=== PATIENT | female | born 1985 | race Caucasian/White ===

== ENCOUNTER 2016-07-20 12:17 | Inpatient (IN) | payer SELFPAY ==
[~2016-07-20] VITALS: Ht 162.6 cm; Wt 54.9 kg
[~2016-07-20 12:17] MED LIST: ACETTAB19 PO; CALC500C3 PO; HYDR-5688 PO; IPRA1AER2 INH; PROC1TAB5 PO
[2016-07-20] MEDS ORDERED: VNTHFA/IN INH (12:25)
[2016-07-20] MEDS ORDERED: GABA-113 PO (12:25)
--- NOTE | 2016-07-20 13:57 | EMERGENCY ROOM VISIT NOTE ---
History First contact with patient: 12:23 Chief Complaint: REFERRED BY DOCTOR Stated Complaint: BRUISING History of Present Illness The patient is a pleasant 30 year old female who presents to the Emergency Room via private vehicle with complaints of "bruising". The patient states that today she was at [facility] for her initial visit when she was asked to come here by Dr. Herrera. The patient states that she is developed bruising on the bilateral legs that had been persistent for the past 4 -6 days. She develops more bruising each day and has no associated trauma, injury or pain. The patient today while at Dr. Herrera office reportedly had a routine [employer] exam, as well as Chlamydia and gonorrhea screen and negative test. She is here today requesting further workup for the bruising as well as HIV, hepatitis C, hepatitis B and RPR testing. The patient again states there is no known injury to the bruising. She does smoke around 4 cigarettes per day and is trying to quit. There is occasional alcohol use. There is history of IV drug use that was for the past 5 years, but denies any use in the past 4 months. Since then she has been trying to wean herself off of heroin and has not taken anything for the past 4 weeks until Wednesday and this past Wednesday of which she snorted heroin. She also admits to sharing needles. She denies any history of known blood disorders, chest pain, shortness of breath, abdominal pain, other skin changes or rashes, fever, chills , change in weight. She did recently have an [address] ride but denies contraceptives. Patient denies any urinary symptoms. Review of Systems A complete 10-point Review of Systems was discussed with the patient, with pertinent positives and negatives listed in the History of Present Illness. All remaining Review of Systems questions can be considered negative unless otherwise specified. Past Medical/Surgical History Medical Problems: (1) Anxiety State Nos (2) Bipolar disorder (3) Bronchitis (4) Depression (5) Gastroenteritis (6) Pneumonitis due to inhaled substance Family History Anxiety Diabetes mellitus GERD [place] under the age of 55 Social History Smoking Status: Current Every Day Smoker Alcohol Use: none Marital Status: single Housing Status: lives with friends Occupation Status: employed Current/Historical Medications Scheduled Albuterol Hfa (Ventolin Hfa), 2-4 PUFFS INH Q6H Gabapentin (Neurontin), 600 MG PO DAILY Allergies Coded Allergies: BEE STING (Verified Allergy, Unknown, swelling,SOB, 12/12/15) Physical Exam Vital Signs Date Time Temp Pulse Resp B/P Pulse Ox O2 Delivery O2 Flow Rate FiO2 07/20/16 16:50 91 20 146/100 94 Room Air 07/20/16 15:33 93 07/20/16 15:03 98 24 135/98 98 Room Air 07/20/16 14:09 128/69 07/20/16 12:19 36.7 92 18 134/73 93 Room Air Physical Exam VITAL SIGNS - Vital signs and nursing notes were reviewed. The patient is afebrile, she is normotensive at 134/73, she is not tachycardic and is saturating on room air at 93%. GENERAL -30-year-old female appearing her stated age who is in no acute distress. Communicates well with provider and answers questions appropriately. SKIN - there are multiple bruises overlying the bilateral lower extremities that spare the feet. These are not symmetrical in nature. There is slight tenderness to the right popliteal region overlying one of the bruises. No evidence of skin sloughing. There is no bruising above the waistline. HEAD - NC/AT. EYES - PERRL with EOMI bilaterally. Sclera anicteric. Palpebral conjunctiva pink and moist with no injection noted. EARS - No deformities of external structures noted on gross examination bilaterally. No hemotympanum. External auditory canals without discharge or otorrhea. Tympanic membranes pearly anderson without retraction or bulging. No fluid or purulent material visualized behind the TM. Handle of malleus, umbo, cone of light, pars tensa/flaccid all easily visualized. NOSE - Midline and without cyanosis. No epistaxis or purulent drainage noted. Septum midline without deviation or septal hematoma noted. MOUTH/OROPHARYNX - Without perioral cyanosis. Buccal mucosa pink and moist and without leukoplakia. Tongue midline with equal elevation of palate bilaterally. No tonsillar hypertrophy, erythema, or exudates noted. Fair dentition noted. LUNGS - Chest wall symmetric without accessory muscle use, intercostals retractions, or central cyanosis. Normal vesicular breath sounds CTA B/L. No wheezes, rales, or rhonchi appreciated. CARDIAC - RRR with S1/S2. No murmur, rubs, or gallops appreciated. EXTREMITIES - No clubbing or peripheral cyanosis. No pretibial edema present. + 5/5 strength noted in UE/LE bilaterally. NEUROLOGIC - Cranial nerves II through XII grossly intact. Sensory intact to light touch throughout. PSYCH - Pt is very pleasant and interacts well with examiner. Medical Decision & Procedures ER Provider Diagnostic Interpretation: CT ANGIOGRAM OF THE CHEST CLINICAL HISTORY: Atypical chest pain and shortness of breath. Suspected pulmonary embolism. COMPARISON STUDY: Chest x-ray dated 11/17/2015 TECHNIQUE: Following the IV administration of 86 mL of Optiray-320, CT angiogram of the thorax was performed from the thoracic inlet to the lung bases utilizing the pulmonary embolus protocol. Images are reviewed in the axial, sagittal, and coronal planes. IV contrast was administered without complication. MIP imaging was performed. CT DOSE: 190.72 mGy.cm FINDINGS: No pathologically enlarged axillary mediastinal or hilar lymph nodes were visualized. There was no evidence of thoracic aortic dilatation. There were no pulmonary artery filling defects to indicate acute pulmonary embolism. No pleural effusions are visualized. There is bilateral bronchial wall thickening and mucous plugging. There are scattered groundglass opacities within the right middle and right upper lobe, likely representing a pneumonitis. IMPRESSION: 1. No CT evidence of acute pulmonary embolism 2. Bilateral bronchial wall thickening and bilateral mucous plugging 3. Scattered groundglass opacities within the right upper lobe and right middle lobe, likely secondary to a pneumonitis Electronically signed by: Benjamin Romano M.D. 07/20/2016 4:42 PM Dictated Date/Time: 07/20/2016 4:37 PM Laboratory Results 07/20/16 13:27 Red Blood Count 4.18, Mean Corpuscular Volume 95.5, Mean Corpuscular Hemoglobin 32.5, Mean Corpuscular Hemoglobin Concent 34.1, Mean Platelet Volume 10.7, Neutrophils (%) (Auto) 66.9, Lymphocytes (%) (Auto) 14.5, Monocytes (%) (Auto) 8.3, Eosinophils (%) (Auto) 9.9, Basophils (%) (Auto) 0.2, Neutrophils # (Auto) 7.60, Lymphocytes # (Auto) 1.64, Monocytes # (Auto) 0.94, Eosinophils # (Auto) 1.12, Basophils # (Auto) 0.02 1/30/17 13:27 Test 07/20/16 13:27 White Blood Count 11.34 K/uL (4.8-10.8) Red Blood Count 4.18 M/uL (4.2-5.4) Hemoglobin 13.6 g/dL (12.0-16.0) Hematocrit 39.9 % (37-47) Mean Corpuscular Volume 95.5 fL (80-100) Mean Corpuscular Hemoglobin 32.5 pg (25-34) Mean Corpuscular Hemoglobin Concent 34.1 g/dl (32-36) Platelet Count 240 K/uL (130-400) Mean Platelet Volume 10.7 fL (7.4-10.4) Neutrophils (%) (Auto) 66.9 % Lymphocytes (%) (Auto) 14.5 % Monocytes (%) (Auto) 8.3 % Eosinophils (%) (Auto) 9.9 % Basophils (%) (Auto) 0.2 % Neutrophils # (Auto) 7.60 K/uL (1.4-6.5) Lymphocytes # (Auto) 1.64 K/uL (1.2-3.4) Monocytes # (Auto) 0.94 K/uL (0.11-0.59) Eosinophils # (Auto) 1.12 K/uL (0-0.5) Basophils # (Auto) 0.02 K/uL (0-0.2) RDW Standard Deviation 47.4 fL (36.4-46.3) RDW Coefficient of Variation 13.7 % (11.5-14.5) Immature Granulocyte % (Auto) 0.2 % Immature Granulocyte # (Auto) 0.02 K/uL (0.00-0.02) Erythrocyte Sedimentation Rate 14 mm/hr (0-21) Anion Gap 10.0 mmol/L (3-11) Est Creatinine Clear Calc Drug Dose 103.9 ml/min Estimated GFR () 136.3 Estimated GFR (Non- 117.6 BUN/Creatinine Ratio 15.0 (10-20) Calcium Level 9.1 mg/dl (8.5-10.1) Total Bilirubin 0.3 mg/dl (0.2-1) Aspartate Amino Transf (AST/SGOT) 12 U/L (15-37) Alanine Aminotransferase (ALT/SGPT) 17 U/L (12-78) Alkaline Phosphatase 57 U/L (45-117) Troponin I < 0.015 ng/ml (0-0.045) C-Reactive Protein 1.61 mg/dl (0-0.29) Total Protein 7.5 gm/dl (6.4-8.2) Albumin 4.3 gm/dl (3.4-5.0) Globulin 3.2 gm/dl (2.5-4.0) Albumin/Globulin Ratio 1.3 (0.9-2) Human Chorionic Gonadotropin, Qual NEG (NEG) Hepatitis B Surface Antigen NEG (NEG) Hepatitis C Antibody NEG (NEG) HIV (1&2) Ab and P24 Ag, 4th Gener NEG (NEG) Medications Administered Medications (Trade) Dose Ordered Sig/Isis Route Start Time Stop Time Status Last Admin Dose Admin Albuterol/ Ipratropium (Duoneb) 3 ml NOW STAT INH 07/20/16 15:13 07/20/16 15:19 DC 07/20/16 15:13 3 ML Levofloxacin (Levaquin / D5W) 750 mg NOW STAT IV 07/20/16 17:25 07/20/16 17:28 DC 07/20/16 18:21 750 MG Piperacillin Sod/ Tazobactam Sod (Zosyn Iv) 4.5 gm NOW STAT IV 07/20/16 17:25 07/20/16 17:28 DC 07/20/16 17:41 4.5 GM Medical Decision Patient was seen and evaluated as above. After obtaining a thorough history and physical examination, IV access was obtained and a CBC, CMP, RPR, ESR, C- reactive protein, HIV, hepatitis C, hepatitis b testing secondary to subjective and objective examination findings. Patient was also evaluated by my attending. The patient was very pleasant during exam and very truthful throughout history questions. She does a history of drug use and there was concern for underlying vasculitis or coagulopathy. Patient also requesting testing for blood-borne illnesses. This is also through the request of Dr. Herrera, of [facility] who called the emergency department at 12:10 PM and spoke with the nurse historic sites supervisor. The patient's workup did reveal a slight anemia and mild leukocytosis at 11.34. CMP revealed normal electrolytes, and good kidney function. AST was slightly low and the C- reactive protein was elevated. Troponin was negative. The pretest counseling was performed with the patient prior to ordering the hepatitis and HIV panels. She did consent. The results of the hepatitis B, hepatitis C and HIV were discussed with the patient and told to be negative here. The RPR were still pending. The case was discussed with my attending and it was decided that the patient was able to be discharged as she was quickly doing well however when I went to discuss the findings with the patient she had turned erythematous, had difficulty breathing therefore I immediately placed her on pulse ox and she desaturated to 87% on room air. I was quite concerned and ordered a chest x-ray , DuoNeb therapy, d-dimer secondary to these findings. I then discussed the case with my attending and it was decided to order a CT scan of the chest secondary to sudden onset and concern for PE as she was tachycardic and hypoxic suddenly for no identifiable reason. D-dimer and chest x-ray were canceled. The patient was placed on oxygen and then began to saturate well on this. CT scan did not reveal pulmonary embolism. There was groundglass opacities, mucous plugging and concern for pneumonitis. The patient noted that she has been using an inhaler lately for these symptoms and notes she is been using it quite frequently. Due to the patient's desaturation and correlation with the CT scan findings I do feel that antibiotics are necessary and the case was discussed with the in-house pharmacist and my attending. Through collaboration it was decided to order vancomycin, Zosyn and Levaquin. 1100 mg of vancomycin, 4.5 g of Zosyn and 750 mg of Levaquin were ordered. I do believe these are appropriate given the patient's clinical correlation to CT scan findings. Because the patient had the low oxygenation findings and was placed upon oxygen and correlation with the CT scan I do believe that she warrants admission at this time for further evaluation and management. I did discuss the case with Dr. Dupree, and the admitting physician will be Dr. Nguyen. I do believe this patient at this time will benefit from inpatient admission. Please refer to further documentation regarding the patient's stay. EKG revealed a normal sinus rhythm, rate of 76 bpm. No ectopy or ischemic change noted. In evaluation treatment this patient the following differential diagnoses were entertained: HSP, TTP, ITP, trauma, drug use, asthma, bronchitis, pulmonary embolism, myocardial infarction among others. Impression Primary Impression: Superficial bruising of lower leg Additional Impressions: Ground glass opacity present on imaging of lung Mucus plugging of bronchi Leukocytosis CRP elevated Departure Information Dispostion Admitted as an inpatient Referrals [facility] (PCP) Patient Instructions My [facility] Health Problem Qualifiers Primary Impression: Superficial bruising of lower leg Additional Impressions:
[2016-07-20 14:08] LABS: BASO % 0.2 %; BASO ABS # 0.02 K/uL (0-0.2); COMPLETE YES; EOS % 9.9 %; HEMATOCRIT 39.9 % (37-47); IG% 0.2 %; LYMPH % 14.5 %; LYMPH ABS # 1.64 K/uL (1.2-3.4); MEAN CELL VOLUME 95.5 fL (80-100); MEAN CORPUSCULAR HEMOGLOBIN 32.5 pg (25-34); MEAN CORPUSCULAR HGB CONC 34.1 g/dl (32-36); MEAN PLATELET VOLUME 10.7 fL (7.4-10.4); MONO % 8.3 %; NEUT % 66.9 %; PLATELET COUNT 240 K/uL (130-400); RED BLOOD COUNT 4.18 M/uL (4.2-5.4); WHITE BLOOD COUNT 11.34 K/uL (4.8-10.8)
[2016-07-20 14:34] LABS: C-REACTIVE PROTEIN 1.61 mg/dl (0-0.29); CALCIUM 9.1 mg/dl (8.5-10.1); CREATININE 0.69 mg/dl (0.60-1.20); POTASSIUM 4.1 mmol/L (3.5-5.1)
[2016-07-20 14:36] LABS: ALB/GLOB RATIO 1.3 (0.9-2)
[2016-07-20] MEDS ORDERED: ALBUT/IPRATROP 3MG/0.5MG NEB 3 ML VIAL INH STA (15:13)
[2016-07-20] MEDS ORDERED: OPTIRAY 320 IV PRN (15:30)
--- NOTE | 2016-07-20 16:44 | DIAGNOSTIC IMAGING REPORT ---
CT ANGIOGRAM OF THE CHEST CLINICAL HISTORY: Atypical chest pain and shortness of breath. Suspected pulmonary embolism. COMPARISON STUDY: Chest x-ray dated 11/17/2015 TECHNIQUE: Following the IV administration of 86 mL of Optiray-320, CT angiogram of the thorax was performed from the thoracic inlet to the lung bases utilizing the pulmonary embolus protocol. Images are reviewed in the axial, sagittal, and coronal planes. IV contrast was administered without complication. MIP imaging was performed. CT DOSE: 190.72 mGy.cm FINDINGS: No pathologically enlarged axillary mediastinal or hilar lymph nodes were visualized. There was no evidence of thoracic aortic dilatation. There were no pulmonary artery filling defects to indicate acute pulmonary embolism. No pleural effusions are visualized. There is bilateral bronchial wall thickening and mucous plugging. There are scattered groundglass opacities within the right middle and right upper lobe, likely representing a pneumonitis. IMPRESSION: 1. No CT evidence of acute pulmonary embolism 2. Bilateral bronchial wall thickening and bilateral mucous plugging 3. Scattered groundglass opacities within the right upper lobe and right middle lobe, likely secondary to a pneumonitis Electronically signed by: Benjamin Romano M.D. 07/20/2016 4:42 PM Dictated Date/Time: 07/20/2016 4:37 PM
[2016-07-20] MEDS ORDERED: PIPERACILLIN/TAZOBACTAM 4.5 GM/100ML D5W IV STA (17:25)
[2016-07-20] MEDS ORDERED: VANCOMYCIN INJ 1,100 MG in SODIUM CHLORIDE 0.9% 250ML 250 ML IV STA (17:25)
[2016-07-20] MEDS ORDERED: LEVAQUIN 750MG / 150ML D5W IV STA (17:25)
[2016-07-20 18:06] LABS: PREG INTERNAL NEGATIVE QC NEG CLEAR BACKGROUND; PREG INTERNAL POSITIVE QC POS CONTROL LINE
[2016-07-20] MEDS ORDERED: CLONIDINE HCL 0.1 MG TAB PO ONE (19:15)
[2016-07-20] MEDS ORDERED: PANTOprazole SOD 40 MG TAB PO STA (19:23)
[2016-07-20 19:51] VITALS: PULSE 85; O2SAT 94
[2016-07-20] MEDS: ALBUT/IPRATROP 3MG/0.5MG NEB 3 ML VIAL INH SCH (19:51)
[2016-07-20 19:55] VITALS: BP 143/92; PULSE 89; TEMP 36.5; O2SAT 95; Ht 162.6 cm; Wt 54.9 kg
--- NOTE | 2016-07-20 19:58 | History and Physical ---
History & Physical H &P dictated. KE
[2016-07-20 20:00] VITALS: O2SAT 95
[2016-07-20 20:09] LABS: THYROID STIMULATING HORMONE 1.33 uIu/ml (0.300-4.500)
[2016-07-20] MEDS ORDERED: METHYLPREDNISOLONE IV 125 MG in SYRINGE 0 ML IV ONE (20:10)
[2016-07-20] MEDS ORDERED: VANCOMYCIN CONSULT ACTIVE PRN (20:15)
[2016-07-20] MEDS ORDERED: PIPERACILL/TAZOBAC CONSULT ACTIVE PRN (20:15)
[2016-07-20] MEDS ORDERED: ALBUT/IPRATROP 3MG/0.5MG NEB 3 ML VIAL INH PRN (20:30)
--- NOTE | 2016-07-20 21:24 | Pharmacy Progress Note ---
Pharmacy Antibiotic Consult Date of Service: Jul 20, 2016. Pharmacy Dosing Scope Pharmacy is consulted to initiate vancomycin and zosyn IV dosing therapy, order appropriate labs and adjust drug dose/frequency. Subjective The patient is a 30 year old female admitted on Jul 20, 2016 at 18:16. Objective Height (Feet): 5 Height (Inches): 4.00 Weight (Kilograms): 56.700 Lab Results (24hrs): Laboratory Tests Test 07/20/16 13:27 BUN/Creatinine Ratio 15.0 Blood Urea Nitrogen 10 mg/dl Creatinine 0.69 mg/dl White Blood Count 11.34 K/uL Red Blood Count 4.18 M/uL Hemoglobin 13.6 g/dL Hematocrit 39.9 % Mean Corpuscular Volume 95.5 fL Mean Corpuscular Hemoglobin 32.5 pg Mean Corpuscular Hemoglobin Concent 34.1 g/dl Platelet Count 240 K/uL Mean Platelet Volume 10.7 fL Neutrophils (%) (Auto) 66.9 % Lymphocytes (%) (Auto) 14.5 % Monocytes (%) (Auto) 8.3 % Eosinophils (%) (Auto) 9.9 % Basophils (%) (Auto) 0.2 % Neutrophils # (Auto) 7.60 K/uL Lymphocytes # (Auto) 1.64 K/uL Monocytes # (Auto) 0.94 K/uL Eosinophils # (Auto) 1.12 K/uL Basophils # (Auto) 0.02 K/uL Assessment & Plan Patient started on vancomycin and zosyn for possible PNA. Vancomycin: * LD of 1100 mg (~20 mg/kg) x 1 given * Will order MD of 900 mg (~16 mg/kg) iv q 10 hrs to achieve an estimated trough of 18 mcg/ml (goal 15-20 mcg/ml for PNA) * Estimated kinetics: t1/2 ~8 hrs, ke ~0.0874 hr-1, CrCl >100 ml/min * Will obtain a trough prior to the 1200 dose on 07/22 to ensure therapeutic Zosyn: * 4.5 gm iv x 1 (given in ED) * Will start 3.375 gm iv q 8 hrs - which is appropriate for CrCl >20 ml/min ( actual ~100 ml/min) Pharmacy will continue to follow and will adjust dose/frequency as necessary. Thank you
--- NOTE | 2016-07-20 22:04 | HISTORY & PHYSICAL EXAMINATION ---
DATE OF ADMISSION: 07/20/2016 CHIEF COMPLAINT: Bruising on legs and shortness of breath. HISTORY OF PRESENT ILLNESS: The patient noticed bruising that started on her legs late last week. She said that the bruises are brown to light purple in color, had irregular edges. They are not particularly tender. She does not have any trauma. She was not unconscious at any point that she could have been traumatized without her knowing. She did not start taking any new medications. She has a history of Lyme disease and that was treated one year prior. The bruising appears to be worsening daily, each getting larger and now have moved up into her upper thighs and buttocks. On a separate issue, she was in our Emergency Department. She lay back and dozed off and suddenly when she awoke, she felt acutely short of breath and was wheezing. She does use an inhaler for asthma. She is a smoker. That prompted a CT of the chest where it was found that she has bilateral bronchial wall thickening and bilateral mucous plugging, scattered ground-glass opacities within the right upper lobe and right middle lobe likely secondary to pneumonitis. No CT evidence of acute pulmonary embolus. I asked her specifically if she often coughs when she is lying down considering that this may be aspiration, but she revealed to me that over this weekend she used heroin inhalation. PAST MEDICAL HISTORY: Significant for asthma, allergic rhinitis, dysmenorrhea, GERD, bipolar disorder panic disorder and Lyme disease one year prior. PAST SURGERIES: Include a lipoma removed from forehead. SOCIAL HISTORY: She is single, employed by [employer]. She occasionally drinks alcohol, has used marijuana in the past. She had been a one pack per day smoker and actually has weaned herself now down to 5-6 cigarettes per day. However, over this past weekend, at the same time that she used heroin in inhalation form, she said she smoked a lot more. Then did tell me that she had used IV heroin for a number of years and actually self-weaned to off. This past weekend is the first that she has used in 2 years' time. FAMILY HISTORY: Consistent with diabetes, GERD, coronary artery disease and anxiety. PHYSICAL EXAMINATION: VITAL SIGNS: Temperature 36.7, pulse 92, blood pressure 134/73 and pulse ox 93% on room air. GENERAL: The patient is pensive, but awake, alert and oriented x3. HEENT: TMs are intact. No inflammation. Extraocular muscles are intact. Pupils are equal, round react to light and accommodation. Mucous membranes are moist. Throat is clear. NECK: No JVD or lymphadenopathy. LUNGS: Show rhonchi bilaterally and some E to A changes in the right mid to lower lung field. Expiratory wheezing is noted. HEART: Regular, normal S1, S2, without murmurs, rubs or gallops. ABDOMEN: Soft, nontender, nondistended, with positive bowel sounds. EXTREMITIES: There is no clubbing, cyanosis or edema. Her legs are nontender. They are covered with gordon to brown to light purple irregular and multiple different sized what does appear to be subcutaneous bruising. They are flat. The only one that is tender is the larger one behind her right thigh. There are much less below the knee. It does not appear that there are any on her foot and it also seems to stop at her back. She reports that they have been progressing, both in number and in size. It has not traveled outside of the area. She has not had any new tick exposures. She assures me that she was not injured or abused. SKIN: I also noted that the skin on her cheeks are red. PSYCHIATRIC: The patient is cooperative, pleasant. She became tearful when she admitted that she had relapsed with her heroin use over this past weekend. LABORATORY DATA: White count 11.34, hemoglobin 13.6, hematocrit 39.9, platelet count 240,000. Sed rate of 14. Sodium 140, potassium 4.1, chloride 103, CO2 27, BUN 10, creatinine 0.69, glucose 91. AST of 12, ALT of 17. Troponin I less than 0.015. C-reactive protein is minimally elevated at 1.61. Her hCG qualitative is negative. Her RPR is pending. Hepatitis B surface antigen negative, hepatitis C antibody negative. HIV antibody negative. CT of the chest shows an impression of: 1. No CT evidence of acute pulmonary embolus. 2. Bilateral bronchial wall thickening and bilateral mucous plugging. 3. Scattered ground-glass opacities within the right upper lobe and right middle lobe, likely secondary to pneumonitis. ASSESSMENT: The patient is assessed as: 1. Right-sided pneumonitis. 2. Bronchospasm. 3. Heroin inhalation. 4. History of heroin abuse and subsequent relapse. 5. Nicotine abuse, smoking cessation was strongly encouraged. 6. Development of bruising on her lower extremities, not due to trauma. Her platelets are normal. 7. History of asthma. 8. History of allergic rhinitis. 9. History of gastroesophageal reflux disease. 10. History of bipolar disorder. 11. History of panic attacks. PLAN: The patient is admitted to telemetry unit. She was given nebulized treatments and DuoNebs. Even in the light of knowing that she inhaled a substance that likely caused pneumonitis and mucous plugging I am still wondering if she is having aspiration or was sedated at some point and aspirated, so I gave her vancomycin and Zosyn IV. I placed her on single dose of methylprednisolone 125 mg IV followed by q. 6 60 mg dose. I noted towards the latter part of her ER time her blood pressure was getting minimally elevated, so I did start her on clonidine 0.1 mg daily, nicotine patch, Zofran p.r.n. and Protonix daily. Consult pulmonology. DVT prophylaxis in the form of TEDs and SCDs. Consider Lovenox, subcutaneous heparin. Her platelets are fine, but I just suspect that would contribute further to the bruising as we are trying to determine what may be the culprit. I have ordered some additional labs to include vitamin B12, folate, TSH, free T4, AYDE, vitamin K, vitamin C and thiamine. Ivory was not interested at this time in discussing this relapse with mental health, drug and alcohol counseling. She reports that she was able to stop a 5+ year habit of IV heroin abuse on her own without any assistance and she did have a relapse this weekend, but feels that is behind her. She is upset that she did that and does not want to talk about it at this time. SOL
[2016-07-20] MEDS ORDERED: INFLUENZA VIRUS QUAD VACCINE 0.5 ML SYR IM. ONE (23:15)
[2016-07-20] MEDS ORDERED: INFLUENZA ADMINISTRATION CHARGE ONE (23:15)
[2016-07-20 23:55] VITALS: BP 122/70; PULSE 78; TEMP 36.8; O2SAT 96
[2016-07-21] VITALS (14 sets, daily range): BP systolic 116–138; BP diastolic 80–90; PULSE 72–113; TEMP 36.5–36.8; O2SAT 93–99
[2016-07-21] MEDS ORDERED: PIPERACILL/TAZOBAC IV 3.375 GM in DEXTROSE 5% 100ML 100 ML IV SCH ×2
[2016-07-21] MEDS ORDERED: VANCOMYCIN INJ 1,000 MG in SODIUM CHLORIDE 0.9% 250ML 250 ML IV SCH (02:00)
[2016-07-21] MEDS: METHYLPREDNISOLONE IV 60 MG in SYRINGE 0 ML IV SCH ×4 (02:01→19:53)
[2016-07-21] MEDS ORDERED: VANCOMYCIN INJ 900 MG in SODIUM CHLORIDE 0.9% 250ML 250 ML IV SCH (06:00)
[2016-07-21 06:31] LABS: COMPLETE YES; EOS % 0.1 %; HEMATOCRIT 39.3 % (37-47); IG% 0.2 %; LYMPH % 6.7 %; LYMPH ABS # 0.55 K/uL (1.2-3.4); MEAN CELL VOLUME 94.2 fL (80-100); MEAN CORPUSCULAR HEMOGLOBIN 32.1 pg (25-34); MEAN CORPUSCULAR HGB CONC 34.1 g/dl (32-36); MEAN PLATELET VOLUME 10.8 fL (7.4-10.4); MONO % 0.2 %; NEUT % 92.8 %; PLATELET COUNT 223 K/uL (130-400); RED BLOOD COUNT 4.17 M/uL (4.2-5.4); WHITE BLOOD COUNT 8.22 K/uL (4.8-10.8)
[2016-07-21 07:02] LABS: BUN/CREATININE RATIO 17.6 (10-20); CALCIUM 9.3 mg/dl (8.5-10.1); CREATININE 0.68 mg/dl (0.60-1.20); POTASSIUM 3.6 mmol/L (3.5-5.1)
[2016-07-21] MEDS: ALBUT/IPRATROP 3MG/0.5MG NEB 3 ML VIAL INH SCH ×5 (07:10→19:24)
--- NOTE | 2016-07-21 08:04 | Pulmonary Consultation ---
History General Date of Service: Jul 21, 2016. Stated Complaint: Pneumonitis Due To Inhaled Substance HPI The patient is a 30 year old female who presents to [facility] with complaints of Pneumonitis Due To Inhaled Substance. The patient's primary care provider is [facility]. 30 y/o female presenting to the ED after initially being evaluated by Dr. Herrera at the [facility] with notable progressive bilateral lower extremity bruising over the last week with no associated etiology/trauma. She was worked-up by Dr. Herrera; DAIRY SCIENTIST exam, Chlamydia, gonorrhea and . She has a history significant for IVDU (needle sharing), cigarette and occasional alcohol. She does notes no heroin over the last 4 months but snorted heroin last weekend. She was noted to be stable in the ED and was to be d/c but had an acute onset of erythema and difficulty breathing with SaO2 of 87% on ra. A CT of the thorax was obtained with no sing of PE but GGO changes, mucus plugin and possible pneumonitic changes where appreciated. With her acute clinical changes and CT findings she was admitted for monitoring and work- up. The patient has been treated with: Vancomycin 1100 mg Zosyn 4.5g Levaquin 750 mg x1 Oxygen support at 2Lnc DuoNeb Methylprednisolone 125mg x1 followed by 60mg IV Q6 Nicotine patch Patient also notes during our conversation more than likely the last 2-3 days using rescue inhaler 4-5 times per day with some relief secondary to dyspnea and chest tightness. She was not expressing fever, chills or productive sputum over those days. It is difficult for her to recall the last 4-5 days as her heroin use over the weekend seems to have clouded that timeframe. She does not describe any history consistent with poorly controlled asthma nor need further chronic inhaler use. 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 She is currently noting signs similar to previous withdrawal with fever, anxiety and irritability. Historian: patient, EMS Review of Systems Constitutional: reports: fever, malaise Eyes: reports: no symptoms ENT: reports: rhinorrhea Cardiovascular: reports: no symptoms Respiratory: reports: LOPEZ, cough Gastrointestinal: reports: no symptoms Genitourinary - Female: reports: no symptoms Musculoskeletal: reports: myalgias Integumentary: reports: other (lower extremity bruising/there is no bleeding in her gumline, IV sites, lab draw sites, vaginal, rectal other regions other than her lower extremities) Neurologic: reports: as stated in HPI, no symptoms Psychiatric: reports: depression Endocrine: no symptoms Hematologic / Lymphatic: easy bruising Allergic / Immunologic: no symptoms Past Medical History Past Medical History: (1) Anxiety State Nos (2) Bipolar disorder (3) Bronchitis (4) Depression (5) Gastroenteritis (6) Pneumonitis due to inhaled substance (7) Lymes Disease s/p treatment (8) Asthma (9) Allergic Rhinitis (10) Dysmenorrhea (11) GERD Past Surgical History: 1. Lipoma removal Family History Anxiety Diabetes mellitus GERD [place] under the age of 55 1.Anxiety 2.Diabetes mellitus 3.GERD 4.[place] under the age of 55 Social History Hx Tobacco Use In Past Year?: Yes Smoking Status: Current Every Day Smoker Marital status: single Housing status: lives alone Occupational Status: employed Immunizations History of Influenza Vaccine: No History of Tetanus Vaccine?: Unknown History of Pneumococcal: Yes History of Hepatitis B Vaccine: No History of MDRO History of MDRO: No Allergies Coded Allergies: BEE STING (Verified Allergy, Unknown, swelling,SOB, 12/12/15) Current Medications Reported Home Medications Medications Dose Route/Sig Max Daily Dose Days Date Category Neurontin (Gabapentin) 300 Mg Cap 600 Mg PO DAILY 07/20/16 Reported Ventolin Hfa (Albuterol) 200 Puffs/13644 Mcg Aers 2-4 Puffs INH Q6H 07/20/16 Reported Physical Physical Exam Vital Signs: Date Time Temp Pulse Resp B/P Pulse Ox O2 Delivery O2 Flow Rate FiO2 07/21/16 04:00 95 Room Air 07/21/16 03:54 36.6 72 16 116/81 93 Room Air 07/21/16 00:00 95 Room Air 07/20/16 23:55 36.8 78 17 122/70 96 Room Air 07/20/16 20:00 95 Room Air 07/20/16 19:55 36.5 89 22 143/92 95 Room Air 07/20/16 19:51 85 16 94 Room Air 07/20/16 18:23 79 18 144/90 91 Room Air 07/20/16 16:50 91 20 146/100 94 Room Air 07/20/16 15:33 93 07/20/16 15:03 98 24 135/98 98 Room Air 07/20/16 14:09 128/69 07/20/16 12:19 36.7 92 18 134/73 93 Room Air General Appearance: mild distress Head: NORMOCEPHALIC, ATRAUMATIC Eyes: PERRLA, NO DISCHARGE, EOMI, SCLERAE NORMAL, CONJUNCTIVAE NORMAL ENT: NORMAL MOUTH EXAM, NORMAL THROAT EXAM, NORMAL DENTAL EXAM, other (mild erythema of the narrow bilaterally) Neck: NORMAL RANGE OF MOTION, NO TENDERNESS, TRACHEA MIDLINE, NO STRIDOR, SUPPLE, NO THYROMEGALY Respiratory: rhonchi, wheezing Cardiovasular: REGULAR RATE/RHYTHM, NORMAL S1S2, NO M/G/R, NO MURMUR, NO GALLOP , NO RUB, NO JVD Abdomen: NON TENDER, NORMAL BOWEL SOUNDS, NO REBOUND, NO MASSES, NO GUARDING, NO ORGANOMEGALY, NORMAL RECTAL EXAM Genitourinary - Female: EXTERNAL GENITALIA NORMAL, other (normal rectal exam external) Back: NORMAL INSPECTION, NO MIDLINE TENDERNESS, NO CVA TENDERNESS, NO PARAVERTEBRAL TTP, NORMAL RANGE OF MOTION Upper Extremities: NO EDEMA, NO DEFORMITY, NORMAL ROM Lower Extremities: other (diffuse bruising/nonblanching nondependent or weightbearing regions) Pulses: carotid (R) (2+), carotid (L) (2+), dorsalis pedis (R) (2+), dorsalis pedis (L) (2+) Neuro: ALERT, ORIENTED x 3, NORMAL MOTOR EXAM, NORMAL SENSATION, NORMAL CEREBELLAR EXAM, NORMAL SPEECH Reflexes: biceps (R) (3+), bicpes (L) (3+), patellar (L) (2+), achilles (R) (2+ ) Babinski Testing: right (downgoing), left (downgoing) Psychiatric: NORMAL AFFECT, NO SUICIDAL IDEATION, CONTRACTS FOR SAFETY Diagnostics Labs Results Past 24 Hours Test 07/20/16 13:27 07/20/16 19:30 07/21/16 05:49 Range/Units White Blood Count 11.34 8.22 4.8-10.8 K/uL Red Blood Count 4.18 4.17 4.2-5.4 M/uL Hemoglobin 13.6 13.4 12.0-16.0 g/dL Hematocrit 39.9 39.3 37-47 % Mean Corpuscular Volume 95.5 94.2 80-100 fL Mean Corpuscular Hemoglobin 32.5 32.1 25-34 pg Mean Corpuscular Hemoglobin Concent 34.1 34.1 32-36 g/dl Platelet Count 240 223 130-400 K/uL Mean Platelet Volume 10.7 10.8 7.4-10.4 fL Neutrophils (%) (Auto) 66.9 92.8 % Lymphocytes (%) (Auto) 14.5 6.7 % Monocytes (%) (Auto) 8.3 0.2 % Eosinophils (%) (Auto) 9.9 0.1 % Basophils (%) (Auto) 0.2 0.0 % Neutrophils # (Auto) 7.60 7.62 1.4-6.5 K/uL Lymphocytes # (Auto) 1.64 0.55 1.2-3.4 K/uL Monocytes # (Auto) 0.94 0.02 0.11-0.59 K/uL Eosinophils # (Auto) 1.12 0.01 0-0.5 K/uL Basophils # (Auto) 0.02 0.00 0-0.2 K/uL RDW Standard Deviation 47.4 46.3 36.4-46.3 fL RDW Coefficient of Variation 13.7 13.4 11.5-14.5 % Immature Granulocyte % (Auto) 0.2 0.2 % Immature Granulocyte # (Auto) 0.02 0.02 0.00-0.02 K/uL Erythrocyte Sedimentation Rate 14 0-21 mm/hr Sodium Level 140 140 136-145 mmol/L Potassium Level 4.1 3.6 3.5-5.1 mmol/L Chloride Level 103 105 98-107 mmol/L Carbon Dioxide Level 27 22 21-32 mmol/L Anion Gap 10.0 13.0 3-11 mmol/L Blood Urea Nitrogen 10 12 7-18 mg/dl Creatinine 0.69 0.68 0.60-1.20 mg/dl Est Creatinine Clear Calc Drug Dose 103.9 105.5 ml/min Estimated GFR () 136.3 137.0 Estimated GFR (Non- 117.6 118.2 BUN/Creatinine Ratio 15.0 17.6 10-20 Random Glucose 91 125 70-99 mg/dl Calcium Level 9.1 9.3 8.5-10.1 mg/dl Total Bilirubin 0.3 0.2-1 mg/dl Aspartate Amino Transf (AST/SGOT) 12 15-37 U/L Alanine Aminotransferase (ALT/SGPT) 17 12-78 U/L Alkaline Phosphatase 57 45-117 U/L Troponin I < 0.015 0-0.045 ng/ml C-Reactive Protein 1.61 0-0.29 mg/dl Total Protein 7.5 6.4-8.2 gm/dl Albumin 4.3 3.4-5.0 gm/dl Globulin 3.2 2.5-4.0 gm/dl Albumin/Globulin Ratio 1.3 0.9-2 Human Chorionic Gonadotropin, Qual NEG NEG Rapid Plasma Reagin NONREACTIVE NONREACT Hepatitis B Surface Antigen NEG NEG Hepatitis C Antibody NEG NEG HIV (1&2) Ab and P24 Ag, 4th Gener NEG NEG Vitamin B12 Level 558 211-911 pg/mL Folate > 24.00 >5.38 ng/mL Thyroid Stimulating Hormone (TSH) 1.330 0.300-4.500 uIu/ml Free Thyroxine 1.25 0.80-1.60 ng/dl Diagnostic Radiology CT ANGIOGRAM OF THE CHEST 1.No CT evidence of acute pulmonary embolism 2.Bilateral bronchial wall thickening and bilateral mucous plugging 3.Scattered groundglass opacities within the right upper lobe and right middle lobe, likely secondary to a pneumonitis 4.P/A ratio >1 EKG Interpretation: NORMAL EKG Impression Assessment and Plan 30-year-old female with acute onset respiratory insufficiency and right upper lobe groundglass changes: #1 groundglass changes: The most likely diagnosis of acute onset unilateral are localized groundglass changes/pneumonitis or infection, pulmonary edema with mitral valve prolapse, pulmonary contusion, pulmonary hemorrhage pulmonary emboli are bronchial alveolar carcinoma's. At this time I think we should further evaluate the ideas of infection typical and atypical and possible pulmonary contusion versus vasculitis/inhalation injury. Suggest at this time we switched to Levaquin 750 mg daily for atypical coverage and performed an induced sputum sending for PCP/Mycobacterium and other infectious and viral etiologies. At this time I will hold off on sending for PCP analysis this patient's HIV has come back negative. #2 asthma: Patient does have a history of asthma very poorly defined in her clinical history agree with current steroid dosing but as she progresses/ improves should taper down quickly: #3 bruising: Patient shows no signs of bleeding in her gums, lab draw areas are current IV sites. Bleeding diathesis is lower on the list but etiology of active bruising is concerning. Labs are currently pending. If no etiology is found workup with bleeding time/platelet function analyzer/PT, PTT, INR and possibly even antiphospholipid antibody testing might be warranted versus hematologic consultation. #4 rhinitis: Initiate Flonase one puff each nostril twice a day.
[2016-07-21] MEDS: PANTOprazole SOD 40 MG TAB PO SCH (08:37)
[2016-07-21] MEDS: ONDANSETRON INJ 2 MG/ML 2 ML VIAL IV PRN ×3 (08:38→22:10)
[2016-07-21] MEDS: GABAPENTIN 600 MG TAB PO SCH (08:40)
[2016-07-21] MEDS: CLONIDINE HCL 0.1 MG TAB PO SCH (09:00)
[2016-07-21] MEDS: NICOTINE 7 MG/24 HR TDSY TD SCH ×2 (09:00→22:20)
[2016-07-21 09:40] LABS: BENZODIAZEPINE, URINE NEG (NEG); COCAINE,URINE NEG (NEG); PHENCYCLIDINE, URINE NEG (NEG)
[2016-07-21] MEDS ORDERED: LORAZEPAM INJ 2 MG in SYRINGE 1 ML IV PRN (10:00)
[2016-07-21] MEDS: LORAZEPAM 2 MG/ML 1 ML VIAL IV PRN ×3 (10:02→23:51)
[2016-07-21] MEDS ORDERED: NURSING VERBAL MED ORDER ONE (10:15)
[2016-07-21] MEDS: METOCLOPRAMIDE HCL INJ 5 MG/ML 2 ML VIAL IV PRN ×2 (10:23→15:56)
[2016-07-21] MEDS: DiphenhydrAMINE HCL 50 MG/ML VIAL IV PRN ×2 (10:27→15:56)
--- NOTE | 2016-07-21 15:22 | Hospitalist Progress Note ---
Hospitalist Progress Note Date of Service Jul 21, 2016. Subjective Pt evaluation today including: conversation w/ patient, physical exam, chart review, lab review, review of studies, review of inpatient medication list Patient in acute distress C/o nausea and abdominal pain RUQ c/o extreme anxiety Patient denies any sOB, chest pain or fevers Constitutional: No fever Eyes: No worsening of vision ENT: No hearing loss Respiratory: No cough, No dyspnea on exertion, No shortness of breath Cardiovascular: No chest pain, No edema Abdomen: + constipation, + nausea, + pain, No diarrhea, No vomiting Musculoskeletal: No joint pain Female : No dysuria Neurologic: No memory loss Psychiatric: No depression symptoms Heme: No abnormal bleeding/bruising Endo: No fatigue Medications Current Inpatient Medications Medications (Trade) Dose Ordered Sig/Isis Route Start Time Stop Time Status Last Admin Dose Admin Ioversol (Optiray 320) 100 ml UD PRN IV 07/20/16 15:30 07/24/16 15:29 Albuterol/ Ipratropium 3 ml 3 ml QIDR INH 07/20/16 20:00 08/19/16 19:59 07/21/16 14:55 3 ML Methylprednisolone Sodium Succinate/ Syringe (Solu-Medrol IV/ Syringe) 0.96 ml @ 1.5 mls/min Q6H IV 07/21/16 02:00 08/20/16 01:59 07/21/16 14:34 1.5 MLS/MIN Clonidine HCl (Catapres Tab) 0.1 mg QAM PO 07/21/16 09:00 08/20/16 08:59 07/21/16 09:00 0.1 MG Acetaminophen (Tylenol Tab) 650 mg Q4H PRN PO 07/20/16 19:15 08/19/16 19:14 Diphenhydramine HCl (Benadryl Inj) 25 mg Q4 PRN IV 07/20/16 19:30 08/19/16 19:29 07/21/16 10:27 25 MG Ondansetron HCl (Zofran Inj) 4 mg Q6H PRN IV 07/20/16 19:30 08/19/16 19:29 07/21/16 14:34 4 MG Pantoprazole Sodium (Protonix Tab) 40 mg QAM PO 07/21/16 09:00 08/20/16 08:59 07/21/16 08:37 40 MG Nicotine (Nicoderm Cq 7 Mg Patch) 1 patch QAM TD 07/21/16 09:00 08/20/16 08:59 Miscellaneous (Remove Nicoderm Patch) 1 ea HS N/A 07/20/16 21:00 08/19/16 20:59 Gabapentin (Neurontin Tab) 600 mg DAILY PO 07/21/16 09:00 08/20/16 08:59 07/21/16 08:40 600 MG Albuterol/ Ipratropium 3 ml 3 ml Q2H PRN INH 07/20/16 20:30 08/19/16 20:29 Levofloxacin/Prmx (Levaquin / D5W/ Premixed D5W) 150 ml @ 100 mls/hr Q24H IV 07/21/16 18:00 07/26/16 19:29 Lorazepam 2 mg 2 mg Q4H PRN IV 07/21/16 09:30 08/20/16 09:29 07/21/16 10:02 2 MG Lorazepam/Syringe (Ativan Inj/ Syringe) 2 ml @ 1 mls/min Q4H PRN IV 07/21/16 10:00 08/20/16 09:59 07/21/16 11:50 1 MLS/MIN Metoclopramide HCl (Reglan Inj) 10 mg Q6H PRN IV 07/21/16 10:15 08/20/16 10:14 07/21/16 10:23 10 MG Objective Vital Signs Date Time Temp Pulse Resp B/P Pulse Ox O2 Delivery O2 Flow Rate FiO2 07/21/16 14:56 100 16 96 Room Air 07/21/16 12:32 36.6 112 16 138/90 98 Room Air 07/21/16 12:00 97 Room Air 07/21/16 11:05 105 16 99 Room Air 07/21/16 08:39 36.5 89 16 136/85 94 Room Air 07/21/16 08:39 79 16 95 Room Air 07/21/16 08:00 97 Room Air 07/21/16 04:00 95 Room Air 07/21/16 03:54 36.6 72 16 116/81 93 Room Air 07/21/16 00:00 95 Room Air 07/20/16 23:55 36.8 78 17 122/70 96 Room Air 07/20/16 20:00 95 Room Air 07/20/16 19:55 36.5 89 22 143/92 95 Room Air 07/20/16 19:51 85 16 94 Room Air 07/20/16 18:23 79 18 144/90 91 Room Air 07/20/16 16:50 91 20 146/100 94 Room Air 07/20/16 15:33 93 Physical Exam General Appearance: WD/WN, + moderate distress Eyes: normal inspection ENT: normal ENT inspection Neck: supple Respiratory/Chest: chest non-tender Cardiovascular: + tachycardia Abdomen: + guarding, + tenderness Extremities: normal range of motion Neurologic/Psychiatric: college president II-XII nml as tested, no motor/sensory deficits, oriented x 3 Skin: normal color, warm/dry, no rash Lymphatic: no adenopathy Laboratory Results Last 24 Hours Test 07/20/16 19:30 07/21/16 00:00 07/21/16 05:49 Vitamin B12 Level 558 pg/mL Folate > 24.00 ng/mL Thyroid Stimulating Hormone (TSH) 1.330 uIu/ml Free Thyroxine 1.25 ng/dl Urine Opiates Screen POS Urine Methadone, Qualitative NEG Urine Barbiturates NEG Urine Phencyclidine (PCP) Level NEG Ur Amphetamine/Methamphetamine NEG MDMA (Ecstasy) Screen NEG Urine Benzodiazepines Screen NEG Urine Cocaine Metabolite NEG Urine Marijuana (THC) POS White Blood Count 8.22 K/uL Red Blood Count 4.17 M/uL Hemoglobin 13.4 g/dL Hematocrit 39.3 % Mean Corpuscular Volume 94.2 fL Mean Corpuscular Hemoglobin 32.1 pg Mean Corpuscular Hemoglobin Concent 34.1 g/dl Platelet Count 223 K/uL Mean Platelet Volume 10.8 fL Neutrophils (%) (Auto) 92.8 % Lymphocytes (%) (Auto) 6.7 % Monocytes (%) (Auto) 0.2 % Eosinophils (%) (Auto) 0.1 % Basophils (%) (Auto) 0.0 % Neutrophils # (Auto) 7.62 K/uL Lymphocytes # (Auto) 0.55 K/uL Monocytes # (Auto) 0.02 K/uL Eosinophils # (Auto) 0.01 K/uL Basophils # (Auto) 0.00 K/uL RDW Standard Deviation 46.3 fL RDW Coefficient of Variation 13.4 % Immature Granulocyte % (Auto) 0.2 % Immature Granulocyte # (Auto) 0.02 K/uL Sodium Level 140 mmol/L Potassium Level 3.6 mmol/L Chloride Level 105 mmol/L Carbon Dioxide Level 22 mmol/L Anion Gap 13.0 mmol/L Blood Urea Nitrogen 12 mg/dl Creatinine 0.68 mg/dl Est Creatinine Clear Calc Drug Dose 105.5 ml/min Estimated GFR () 137.0 Estimated GFR (Non- 118.2 BUN/Creatinine Ratio 17.6 Random Glucose 125 mg/dl Calcium Level 9.3 mg/dl Assessment and Plan Patient is a 30 y.o.F with PMHx of Asthma, Bipolar Depression, IVDA who presents with SOB and found to have pneumonitis on CT scan Pneumonitis - suspect 2/2 to inhalation pneumonitis( given recent inhalation of heroin) however r/o infection - appreciate pulmonary input - switch to levaquin day #2 - decrease steroids to q 8 hours - check induced sputum for mycobateria per pulmonary Nausea and Vomiting - suspect 2/2 to heroin withdrawal however given RUQ pain r/o hepatpbiliary etiology - check RUQ ultrasound - check hepatic function/hepatitis panel - start reglan and zofran Asthma - continue nebulizers and steroids as stated above h/o IVDA - last use 3 days prior to admission - social work consult - ativan IV prn Tobacco Abuse - smoking cessation Full Code
[2016-07-21] MEDS: LEVOFLOXACIN / D5W 750 MG in PREMIXED IN D5W 150 ML IV SCH (17:43)
--- NOTE | 2016-07-21 21:42 | DIAGNOSTIC IMAGING REPORT ---
ULTRASOUND RIGHT UPPER QUADRANT ABDOMEN CLINICAL HISTORY: Right upper quadrant abdominal pain. COMPARISON STUDY: Abdominal CT dated 03/10/2015. TECHNIQUE: Real-time, grayscale, and color flow sonography of the right upper quadrant of the abdomen was performed. Images are reviewed in the transverse and longitudinal planes. FINDINGS: Liver: The liver is normal in size and echotexture. There is no intrahepatic biliary ductal dilatation. The main portal vein is patent. 3 small well-circumscribed echogenic lesions are seen in the right hepatic lobe measure up to 1.4 cm. These are typical in appearance for small hemangiomas and also seen on the 2015 CT scan. Gallbladder: The gallbladder is normal in appearance. No gallstones are identified. There is no gallbladder wall thickening or pericholecystic fluid. A sonographic Jeong's sign is reportedly absent. The common bile duct measures up to 0.3 cm in diameter. Pancreas: Visualized portions of the pancreatic head and body are normal in appearance. The splenic vein is patent. Right kidney: Survey images of the right kidney demonstrate normal size and echotexture. There is no hydronephrosis. Ascites: None. IMPRESSION: 1. No acute sonographic abnormality is identified in the right upper quadrant. No gallstones are seen. 2. Small hepatic lesions are typical for benign hemangiomas and similar to previous. Electronically signed by: Edi Benitez M.D. 07/21/2016 9:40 PM Dictated Date/Time: 07/21/2016 9:38 PM
[2016-07-22] VITALS (16 sets, daily range): BP systolic 107–144; BP diastolic 69–92; PULSE 85–122; TEMP 36.4–37.3; O2SAT 95–98
[2016-07-22] MEDS ORDERED: NURSING DECISION MEDICATION ORDER SCH (01:15)
[2016-07-22] MEDS ORDERED: PROMETHAZINE HCL INJ 25 MG in SODIUM CHLORIDE 0.9% 50ML 50 ML IV ONE (01:45)
[2016-07-22] MEDS: DiphenhydrAMINE HCL 50 MG/ML VIAL IV PRN ×4 (01:53→22:32)
[2016-07-22] MEDS: ACETAMINOPHEN 325 MG TAB PO PRN ×2 (01:54→10:43)
[2016-07-22] MEDS: METHYLPREDNISOLONE IV 60 MG in SYRINGE 0 ML IV SCH (04:16)
[2016-07-22] MEDS: METOCLOPRAMIDE HCL INJ 5 MG/ML 2 ML VIAL IV PRN (04:16)
[2016-07-22] MEDS: LORAZEPAM 2 MG/ML 1 ML VIAL IV PRN ×4 (04:17→23:08)
[2016-07-22 06:03] LABS: HEMATOCRIT 36.6 % (37-47); MEAN CELL VOLUME 94.3 fL (80-100); MEAN CORPUSCULAR HEMOGLOBIN 32.5 pg (25-34); MEAN CORPUSCULAR HGB CONC 34.4 g/dl (32-36); MEAN PLATELET VOLUME 10.8 fL (7.4-10.4); PLATELET COUNT 241 K/uL (130-400); RED BLOOD COUNT 3.88 M/uL (4.2-5.4); WHITE BLOOD COUNT 23.61 K/uL (4.8-10.8)
[2016-07-22 06:27] LABS: BASO ABS # 0.01 K/uL (0-0.2); COMPLETE YES; IG% 0.4 %; LYMPH % 4.3 %; LYMPH ABS # 1.01 K/uL (1.2-3.4); MONO % 7.5 %; NEUT % 87.8 %
[2016-07-22 06:29] LABS: BUN/CREATININE RATIO 22.4 (10-20); CALCIUM 9.4 mg/dl (8.5-10.1); CREATININE 0.67 mg/dl (0.60-1.20); POTASSIUM 3.5 mmol/L (3.5-5.1)
[2016-07-22 06:31] LABS: ALB/GLOB RATIO 1.4 (0.9-2)
[2016-07-22] MEDS: ALBUT/IPRATROP 3MG/0.5MG NEB 3 ML VIAL INH SCH ×4 (06:50→19:15)
[2016-07-22] MEDS: PANTOprazole SOD 40 MG TAB PO SCH (09:26)
[2016-07-22] MEDS: CLONIDINE HCL 0.1 MG TAB PO SCH (09:26)
[2016-07-22] MEDS: GABAPENTIN 600 MG TAB PO SCH (09:27)
[2016-07-22] MEDS: NICOTINE 7 MG/24 HR TDSY TD SCH (10:43)
[2016-07-22] MEDS ORDERED: VANCOMYCIN TROUGH ONE (11:30)
--- NOTE | 2016-07-22 11:38 | Pulmonology Progress Note ---
Pulmonary Progress Note Date of Service Jul 22, 2016. Attending Luciano Sultana Subjective Patient is awake and arousable but will not speak Objective Unable to perform objective evaluation as patient will not speak Vital signs: Within normal limits/stable SaO2 on room air Physical exam: Respiratory: Clear to auscultation bilaterally Was unable to perform any other exam of the patient would not come out of the position Labs: #1 WBC count: 20 3K #2 glucose 120 #3 toxicology: Positive marijuana and opiates next line #4 RPR: Nonreactive #5 hepatitis B antigen: Negative #6 hepatitis C antibody: Negative #7 HIV: Negative Medications #1 methylprednisolone 60 mg IV every 8 hours #2 levofloxacin 750 mg IV daily #3 duo nebs every 2 hours when necessary/4 times per day Assessment & Plan 30-year-old female with acute onset respiratory insufficiency and right upper lobe groundglass changes: #1 Ground Glass changes: Patient has been stable with normal SaO2 on room air at this time. She is responded well to initial treatment and follow-up labs showed no signs of immunoincompetent state. It is possible patient's current groundglass changes on CAT scan are secondary to atypical pneumonia which exacerbated underlying asthma. Performing more invasive evaluations is not warranted at this time but follow up in 6 weeks with repeat high resolution CAT scan is warranted to determine resolution. Next line #2 asthma: Patient is responded well to steroids will decrease IV steroids to by mouth steroids 40 mg prednisone per day. We should be able to taper this quickly over the next 7-10 days. Patient will require inhaled glucocorticoid/ LABA initiation prior to discharge. #3 pneumonia: Patient is at risk for atypical pneumonias would continue Levaquin 750 mg daily #4 follow-up: Patient will need follow-up on her asthma as well as the groundglass nodules right upper lobe. I suggest she follow-up with her primary care doctor for asthma as this most likely was an exacerbation secondary to heroin inhalation. But the groundglass nodules do need follow-up with repeat CAT scan in 6 week window. The patient can come to the [place] [facility] with repeat CAT scan next 5-6 weeks. Data Medications: Current Inpatient Medications Medications (Trade) Dose Ordered Sig/Isis Route Start Time Stop Time Status Last Admin Dose Admin Ioversol (Optiray 320) 100 ml UD PRN IV 07/20/16 15:30 07/24/16 15:29 Albuterol/ Ipratropium (Duoneb) 3 ml QIDR INH 07/20/16 20:00 08/19/16 19:59 07/22/16 11:14 3 ML Clonidine HCl (Catapres Tab) 0.1 mg QAM PO 07/21/16 09:00 08/20/16 08:59 07/22/16 09:26 0.1 MG Acetaminophen (Tylenol Tab) 650 mg Q4H PRN PO 07/20/16 19:15 08/19/16 19:14 07/22/16 10:43 650 MG Diphenhydramine HCl (Benadryl Inj) 25 mg Q4 PRN IV 07/20/16 19:30 08/19/16 19:29 07/22/16 10:43 25 MG Ondansetron HCl (Zofran Inj) 4 mg Q6H PRN IV 07/20/16 19:30 08/19/16 19:29 07/21/16 22:10 4 MG Pantoprazole Sodium (Protonix Tab) 40 mg QAM PO 07/21/16 09:00 08/20/16 08:59 07/22/16 09:26 40 MG Nicotine (Nicoderm Cq 7 Mg Patch) 1 patch QAM TD 07/21/16 09:00 08/20/16 08:59 07/22/16 10:43 1 PATCH Miscellaneous (Remove Nicoderm Patch) 1 ea HS N/A 07/20/16 21:00 08/19/16 20:59 07/21/16 19:53 1 EA Gabapentin (Neurontin Tab) 600 mg DAILY PO 07/21/16 09:00 08/20/16 08:59 07/22/16 09:27 600 MG Albuterol/ Ipratropium 3 ml 3 ml Q2H PRN INH 07/20/16 20:30 08/19/16 20:29 Levofloxacin/Prmx (Levaquin / D5W/ Premixed D5W) 150 ml @ 100 mls/hr Q24H IV 07/21/16 18:00 07/26/16 19:29 07/21/16 17:43 100 MLS/HR Lorazepam 2 mg 2 mg Q4H PRN IV 07/21/16 09:30 08/20/16 09:29 07/22/16 09:26 2 MG Lorazepam/Syringe (Ativan Inj/ Syringe) 2 ml @ 1 mls/min Q4H PRN IV 07/21/16 10:00 08/20/16 09:59 07/21/16 11:50 1 MLS/MIN Metoclopramide HCl 10 mg 10 mg Q6H PRN IV 07/21/16 10:15 08/20/16 10:14 07/22/16 04:16 10 MG Methylprednisolone Sodium Succinate/ Syringe (Solu-Medrol IV/ Syringe) 0.96 ml @ 1.5 mls/min Q8H IV 07/21/16 20:00 08/20/16 19:59 07/22/16 04:16 1.5 MLS/MIN I & O: 24-Hour Column 07/22/16 08:00 Intake Total 340 ml Output Total 700 ml Balance -360 ml Vital Signs: Date Time Temp Pulse Resp B/P Pulse Ox O2 Delivery O2 Flow Rate FiO2 07/22/16 10:57 36.8 98 16 118/69 98 Room Air 07/22/16 09:24 98 135/91 07/22/16 08:00 98 Room Air 07/22/16 06:50 103 16 98 Room Air 07/22/16 04:00 98 Room Air 07/22/16 03:35 36.7 112 17 137/91 97 Room Air 07/22/16 00:00 98 Room Air 07/22/16 00:00 36.7 115 17 131/85 97 Room Air 07/21/16 20:00 98 Room Air 07/21/16 19:25 110 16 98 Room Air 07/21/16 18:40 36.8 113 20 136/84 97 Room Air 07/21/16 16:00 97 Room Air 07/21/16 15:37 36.8 113 20 126/80 97 Room Air 07/21/16 14:56 100 16 96 Room Air 07/21/16 12:32 36.6 112 16 138/90 98 Room Air 07/21/16 12:00 97 Room Air Laboratory Results: Last 24 Hours Test 07/22/16 05:20 White Blood Count 23.61 K/uL Red Blood Count 3.88 M/uL Hemoglobin 12.6 g/dL Hematocrit 36.6 % Mean Corpuscular Volume 94.3 fL Mean Corpuscular Hemoglobin 32.5 pg Mean Corpuscular Hemoglobin Concent 34.4 g/dl Platelet Count 241 K/uL Mean Platelet Volume 10.8 fL Neutrophils (%) (Auto) 87.8 % Lymphocytes (%) (Auto) 4.3 % Monocytes (%) (Auto) 7.5 % Eosinophils (%) (Auto) 0.0 % Basophils (%) (Auto) 0.0 % Neutrophils # (Auto) 20.72 K/uL Lymphocytes # (Auto) 1.01 K/uL Monocytes # (Auto) 1.78 K/uL Eosinophils # (Auto) 0.00 K/uL Basophils # (Auto) 0.01 K/uL RDW Standard Deviation 47.1 fL RDW Coefficient of Variation 13.7 % Immature Granulocyte % (Auto) 0.4 % Immature Granulocyte # (Auto) 0.09 K/uL Red Blood Cell Morphology Unremarkable Sodium Level 139 mmol/L Potassium Level 3.5 mmol/L Chloride Level 102 mmol/L Carbon Dioxide Level 26 mmol/L Anion Gap 11.0 mmol/L Blood Urea Nitrogen 15 mg/dl Creatinine 0.67 mg/dl Est Creatinine Clear Calc Drug Dose 107.1 ml/min Estimated GFR () 137.7 Estimated GFR (Non- 118.8 BUN/Creatinine Ratio 22.4 Random Glucose 120 mg/dl Calcium Level 9.4 mg/dl Total Bilirubin 0.5 mg/dl Aspartate Amino Transf (AST/SGOT) 7 U/L Alanine Aminotransferase (ALT/SGPT) 19 U/L Alkaline Phosphatase 52 U/L Total Protein 7.3 gm/dl Albumin 4.2 gm/dl Globulin 3.1 gm/dl Albumin/Globulin Ratio 1.4
--- NOTE | 2016-07-22 15:12 | Hospitalist Progress Note ---
Hospitalist Progress Note Date of Service Jul 22, 2016. Subjective Pt evaluation today including: conversation w/ patient, physical exam, chart review, lab review, review of studies, review of inpatient medication list Patient had episode of hallucinations and agitation overnight This morning does not rememeber episode Denies any chest pain, SOB, Nausea has improved with ativan Constitutional: No fever Eyes: No worsening of vision ENT: No hearing loss Respiratory: No cough, No shortness of breath Cardiovascular: No chest pain, No edema Abdomen: + nausea, No pain Musculoskeletal: No joint pain Female : No dysuria Neurologic: No memory loss Psychiatric: + problem reported (hallucinations) Endo: No fatigue Skin: No rash Medications Current Inpatient Medications Medications (Trade) Dose Ordered Sig/Isis Route Start Time Stop Time Status Last Admin Dose Admin Ioversol (Optiray 320) 100 ml UD PRN IV 07/20/16 15:30 07/24/16 15:29 Albuterol/ Ipratropium (Duoneb) 3 ml QIDR INH 07/20/16 20:00 08/19/16 19:59 07/22/16 11:14 3 ML Clonidine HCl (Catapres Tab) 0.1 mg QAM PO 07/21/16 09:00 08/20/16 08:59 07/22/16 09:26 0.1 MG Acetaminophen (Tylenol Tab) 650 mg Q4H PRN PO 07/20/16 19:15 08/19/16 19:14 07/22/16 10:43 650 MG Diphenhydramine HCl (Benadryl Inj) 25 mg Q4 PRN IV 07/20/16 19:30 08/19/16 19:29 07/22/16 14:40 25 MG Ondansetron HCl (Zofran Inj) 4 mg Q6H PRN IV 07/20/16 19:30 08/19/16 19:29 07/21/16 22:10 4 MG Pantoprazole Sodium (Protonix Tab) 40 mg QAM PO 07/21/16 09:00 08/20/16 08:59 07/22/16 09:26 40 MG Nicotine (Nicoderm Cq 7 Mg Patch) 1 patch QAM TD 07/21/16 09:00 08/20/16 08:59 07/22/16 10:43 1 PATCH Miscellaneous (Remove Nicoderm Patch) 1 ea HS N/A 07/20/16 21:00 08/19/16 20:59 07/21/16 19:53 1 EA Gabapentin (Neurontin Tab) 600 mg DAILY PO 07/21/16 09:00 08/20/16 08:59 07/22/16 09:27 600 MG Albuterol/ Ipratropium 3 ml 3 ml Q2H PRN INH 07/20/16 20:30 08/19/16 20:29 Levofloxacin/Prmx (Levaquin / D5W/ Premixed D5W) 150 ml @ 100 mls/hr Q24H IV 07/21/16 18:00 07/26/16 19:29 07/21/16 17:43 100 MLS/HR Lorazepam 2 mg 2 mg Q4H PRN IV 07/21/16 09:30 08/20/16 09:29 07/22/16 13:36 2 MG Lorazepam/Syringe (Ativan Inj/ Syringe) 2 ml @ 1 mls/min Q4H PRN IV 07/21/16 10:00 08/20/16 09:59 07/21/16 11:50 1 MLS/MIN Metoclopramide HCl (Reglan Inj) 10 mg Q6H PRN IV 07/21/16 10:15 08/20/16 10:14 07/22/16 04:16 10 MG Fluticasone Propionate (Flonase Nasal [place]) 1 sprays BID NA 07/22/16 21:00 08/21/16 20:59 Objective Vital Signs Date Time Temp Pulse Resp B/P Pulse Ox O2 Delivery O2 Flow Rate FiO2 07/22/16 11:20 36.5 110 20 141/90 95 Room Air 07/22/16 11:15 85 16 98 Room Air 07/22/16 10:57 36.8 98 16 118/69 98 Room Air 07/22/16 09:24 98 135/91 07/22/16 08:00 98 Room Air 07/22/16 06:50 103 16 98 Room Air 07/22/16 04:00 98 Room Air 07/22/16 03:35 36.7 112 17 137/91 97 Room Air 07/22/16 00:00 98 Room Air 07/22/16 00:00 36.7 115 17 131/85 97 Room Air 07/21/16 20:00 98 Room Air 07/21/16 19:25 110 16 98 Room Air 07/21/16 18:40 36.8 113 20 136/84 97 Room Air 07/21/16 16:00 97 Room Air 07/21/16 15:37 36.8 113 20 126/80 97 Room Air Physical Exam General Appearance: WD/WN, no apparent distress Eyes: normal inspection ENT: normal ENT inspection Neck: supple Respiratory/Chest: chest non-tender Cardiovascular: regular rate, rhythm, no edema Abdomen: normal bowel sounds, non tender, soft Extremities: normal range of motion, non-tender 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, no motor/sensory deficits, alert, oriented x 3 Skin: + rash Laboratory Results Last 24 Hours Test 07/22/16 05:20 White Blood Count 23.61 K/uL Red Blood Count 3.88 M/uL Hemoglobin 12.6 g/dL Hematocrit 36.6 % Mean Corpuscular Volume 94.3 fL Mean Corpuscular Hemoglobin 32.5 pg Mean Corpuscular Hemoglobin Concent 34.4 g/dl Platelet Count 241 K/uL Mean Platelet Volume 10.8 fL Neutrophils (%) (Auto) 87.8 % Lymphocytes (%) (Auto) 4.3 % Monocytes (%) (Auto) 7.5 % Eosinophils (%) (Auto) 0.0 % Basophils (%) (Auto) 0.0 % Neutrophils # (Auto) 20.72 K/uL Lymphocytes # (Auto) 1.01 K/uL Monocytes # (Auto) 1.78 K/uL Eosinophils # (Auto) 0.00 K/uL Basophils # (Auto) 0.01 K/uL RDW Standard Deviation 47.1 fL RDW Coefficient of Variation 13.7 % Immature Granulocyte % (Auto) 0.4 % Immature Granulocyte # (Auto) 0.09 K/uL Red Blood Cell Morphology Unremarkable Sodium Level 139 mmol/L Potassium Level 3.5 mmol/L Chloride Level 102 mmol/L Carbon Dioxide Level 26 mmol/L Anion Gap 11.0 mmol/L Blood Urea Nitrogen 15 mg/dl Creatinine 0.67 mg/dl Est Creatinine Clear Calc Drug Dose 107.1 ml/min Estimated GFR () 137.7 Estimated GFR (Non- 118.8 BUN/Creatinine Ratio 22.4 Random Glucose 120 mg/dl Calcium Level 9.4 mg/dl Total Bilirubin 0.5 mg/dl Aspartate Amino Transf (AST/SGOT) 7 U/L Alanine Aminotransferase (ALT/SGPT) 19 U/L Alkaline Phosphatase 52 U/L Total Protein 7.3 gm/dl Albumin 4.2 gm/dl Globulin 3.1 gm/dl Albumin/Globulin Ratio 1.4 Assessment and Plan Patient is a 30 y.o.F with PMHx of Asthma, Bipolar Depression, IVDA who presents with SOB and found to have pneumonitis on CT scan Pneumonitis - suspect 2/2 to inhalation pneumonitis( given recent inhalation of heroin) however r/o infection - appreciate pulmonary input - switch to levaquin day #3 - switch steroids to prednisone 40 mg daily - induced sputum for mycobateria per pulmonary pending Hallucinations/ with hx of bipolar d/o - suspect component of withdrawal however given psychiatric hx I am not sure - appreciate psychiatry input Nausea and Vomiting - suspect 2/2 to heroin withdrawal - improved - RUQ ultrasound reviewed - cont reglan and zofran Rash - thought to be 2/2 to latex - benadryl prn/ will list latex as allergy Asthma - continue nebulizers and steroids as stated above - start advair per pulmonary h/o IVDA - last use 3 days prior to admission - social work consultfor outpatient rehab as pt has agreed - ativan IV prn Pulmonary Nodule - patient will need followup CT in 6 weeks Tobacco Abuse - smoking cessation Full Code
[2016-07-22] MEDS: LEVOFLOXACIN / D5W 750 MG in PREMIXED IN D5W 150 ML IV SCH (17:52)
[2016-07-22] MEDS: FLUTICASONE PROPIONATE NA SPR 16 GM BTL SCH (20:11)
[2016-07-22] MEDS ORDERED: FLUTICASONE/SALMETEROL 100/50 (ADVAIR) 14 PUFF/1 INHALER INH SCH (21:00)
[2016-07-23] MEDS: LORAZEPAM 2 MG/ML 1 ML VIAL IV PRN ×2 (03:15→08:09)
[2016-07-23 04:23] VITALS: BP 118/74; PULSE 106; TEMP 36.6; O2SAT 97
[2016-07-23] MEDS: DiphenhydrAMINE HCL 50 MG/ML VIAL IV PRN (05:00)
[2016-07-23 06:23] LABS: COMPLETE YES; HEMATOCRIT 35.6 % (37-47); IG% 0.2 %; LYMPH % 13.4 %; LYMPH ABS # 1.65 K/uL (1.2-3.4); MEAN CELL VOLUME 94.7 fL (80-100); MEAN CORPUSCULAR HEMOGLOBIN 31.9 pg (25-34); MEAN CORPUSCULAR HGB CONC 33.7 g/dl (32-36); MEAN PLATELET VOLUME 10.8 fL (7.4-10.4); MONO % 11.1 %; NEUT % 75.3 %; PLATELET COUNT 203 K/uL (130-400); RED BLOOD COUNT 3.76 M/uL (4.2-5.4); WHITE BLOOD COUNT 12.35 K/uL (4.8-10.8)
[2016-07-23 06:48] LABS: BUN/CREATININE RATIO 17.6 (10-20); CREATININE 0.88 mg/dl (0.60-1.20); POTASSIUM 3.6 mmol/L (3.5-5.1)
[2016-07-23 06:49] LABS: ALB/GLOB RATIO 1.4 (0.9-2)
[2016-07-23] MEDS: ALBUT/IPRATROP 3MG/0.5MG NEB 3 ML VIAL INH SCH ×2 (07:16→11:12)
[2016-07-23 07:17] VITALS: PULSE 86; O2SAT 98
[2016-07-23] MEDS: FLUTICASONE PROPIONATE NA SPR 16 GM BTL SCH (08:06)
[2016-07-23] MEDS: GABAPENTIN 600 MG TAB PO SCH (08:06)
[2016-07-23] MEDS: NICOTINE 7 MG/24 HR TDSY TD SCH (08:07)
[2016-07-23] MEDS: PANTOprazole SOD 40 MG TAB PO SCH (08:07)
[2016-07-23] MEDS: CLONIDINE HCL 0.1 MG TAB PO SCH (08:07)
[2016-07-23 08:14] VITALS: BP 111/69; PULSE 76; TEMP 36.6; O2SAT 99
--- NOTE | 2016-07-23 08:45 | Pulmonology Progress Note ---
Pulmonary Progress Note Date of Service Jul 23, 2016. Attending Luciano Sultana Subjective Patient has no respiratory complaints at this time was able to ambulate without before even take showers with no dyspnea on exertion. Objective Patient symptoms no signs of increased work of breathing, able to complete full sentences not using accessory muscles are becoming tachypnea Vital signs: Within normal limits/stable SaO2 on room air Physical exam: Respiratory: Clear to auscultation bilaterally Was unable to perform any other exam of the patient would not come out of the position Labs: #1 WBC count: 20 3K #2 glucose 120 #3 toxicology: Positive marijuana and opiates next line #4 RPR: Nonreactive #5 hepatitis B antigen: Negative #6 hepatitis C antibody: Negative #7 HIV: Negative Medications #1 methylprednisolone 60 mg IV every 8 hours #2 levofloxacin 750 mg IV daily #3 duo nebs every 2 hours when necessary/4 times per day Assessment & Plan 30-year-old female admitted with acute onset respiratory insufficiency and right upper lobe groundglass changes: #1 Ground Glass changes: I spoke to the patient at length she will require 6 week follow-up high risk noncontrast CT. Etiology possibly inhalation injury, most often bilateral in nature, or atypical pneumonia. #2 Asthma: Patient is doing well suggest that we taper down her steroids over 10 day window. 40 mg 3 days, 30 mg 3 days, 20 mg 2 days 10 mg 1 then discontinue. We'll move patient's Advair disc up to 250/50 #3 Pneumonia: Patient currently on Levaquin 750 mg day 3 of 5. #4 Follow-Up: Patient will require follow-up in the [place] [facility] with noncontrast CT/high risk in the next 6-8 weeks. At this time will sign off please reconsult as necessary. Data Medications: Current Inpatient Medications Medications (Trade) Dose Ordered Sig/Isis Route Start Time Stop Time Status Last Admin Dose Admin Ioversol (Optiray 320) 100 ml UD PRN IV 07/20/16 15:30 07/24/16 15:29 Albuterol/ Ipratropium (Duoneb) 3 ml QIDR INH 07/20/16 20:00 08/19/16 19:59 07/23/16 07:16 3 ML Clonidine HCl (Catapres Tab) 0.1 mg QAM PO 07/21/16 09:00 08/20/16 08:59 07/23/16 08:07 0.1 MG Acetaminophen (Tylenol Tab) 650 mg Q4H PRN PO 07/20/16 19:15 08/19/16 19:14 07/22/16 10:43 650 MG Diphenhydramine HCl (Benadryl Inj) 25 mg Q4 PRN IV 07/20/16 19:30 08/19/16 19:29 07/23/16 05:00 25 MG Ondansetron HCl (Zofran Inj) 4 mg Q6H PRN IV 07/20/16 19:30 08/19/16 19:29 07/21/16 22:10 4 MG Pantoprazole Sodium (Protonix Tab) 40 mg QAM PO 07/21/16 09:00 08/20/16 08:59 07/23/16 08:07 40 MG Nicotine (Nicoderm Cq 7 Mg Patch) 1 patch QAM TD 07/21/16 09:00 08/20/16 08:59 07/23/16 08:07 1 PATCH Miscellaneous (Remove Nicoderm Patch) 1 ea HS N/A 07/20/16 21:00 08/19/16 20:59 07/22/16 20:05 1 EA Gabapentin (Neurontin Tab) 600 mg DAILY PO 07/21/16 09:00 08/20/16 08:59 07/23/16 08:06 600 MG Albuterol/ Ipratropium 3 ml 3 ml Q2H PRN INH 07/20/16 20:30 08/19/16 20:29 Levofloxacin/Prmx (Levaquin / D5W/ Premixed D5W) 150 ml @ 100 mls/hr Q24H IV 07/21/16 18:00 07/26/16 19:29 07/22/16 17:52 100 MLS/HR Lorazepam 2 mg 2 mg Q4H PRN IV 07/21/16 09:30 08/20/16 09:29 07/23/16 08:09 2 MG Lorazepam/Syringe (Ativan Inj/ Syringe) 2 ml @ 1 mls/min Q4H PRN IV 07/21/16 10:00 08/20/16 09:59 07/21/16 11:50 1 MLS/MIN Metoclopramide HCl (Reglan Inj) 10 mg Q6H PRN IV 07/21/16 10:15 08/20/16 10:14 07/22/16 04:16 10 MG Fluticasone Propionate (Flonase Nasal [place]) 1 sprays BID NA 07/22/16 21:00 08/21/16 20:59 07/23/16 08:06 1 SPRAYS Prednisone (PredniSONE TAB) 30 mg DAILY PO 07/23/16 09:00 08/22/16 08:59 07/23/16 08:13 30 MG Salmeterol Xinafoate/ Fluticasone (Advair Diskus 250/50 Inh) 1 puff BID INH 07/23/16 09:00 08/22/16 08:59 I & O: 24-Hour Column 07/23/16 08:00 Intake Total 620 ml Output Total 2400 ml Balance -1780 ml Vital Signs: Date Time Temp Pulse Resp B/P Pulse Ox O2 Delivery O2 Flow Rate FiO2 07/23/16 08:14 36.6 76 16 111/69 99 07/23/16 07:17 86 12 98 Room Air 07/23/16 04:23 36.6 106 18 118/74 97 Room Air 07/23/16 04:02 Room Air 07/23/16 00:02 Room Air 07/22/16 23:38 37.3 112 17 117/70 96 Room Air 07/22/16 20:18 36.4 122 16 107/74 97 Room Air 07/22/16 20:00 Room Air 07/22/16 19:16 89 16 98 Room Air 07/22/16 16:00 96 Room Air 07/22/16 15:39 36.7 109 18 144/92 96 Room Air 07/22/16 15:23 104 16 98 Room Air 07/22/16 12:00 95 Room Air 07/22/16 11:20 36.5 110 20 141/90 95 Room Air 07/22/16 11:15 85 16 98 Room Air 07/22/16 10:57 36.8 98 16 118/69 98 Room Air 07/22/16 09:24 98 135/91 Laboratory Results: Last 24 Hours Test 07/23/16 05:23 White Blood Count 12.35 K/uL Red Blood Count 3.76 M/uL Hemoglobin 12.0 g/dL Hematocrit 35.6 % Mean Corpuscular Volume 94.7 fL Mean Corpuscular Hemoglobin 31.9 pg Mean Corpuscular Hemoglobin Concent 33.7 g/dl Platelet Count 203 K/uL Mean Platelet Volume 10.8 fL Neutrophils (%) (Auto) 75.3 % Lymphocytes (%) (Auto) 13.4 % Monocytes (%) (Auto) 11.1 % Eosinophils (%) (Auto) 0.0 % Basophils (%) (Auto) 0.0 % Neutrophils # (Auto) 9.31 K/uL Lymphocytes # (Auto) 1.65 K/uL Monocytes # (Auto) 1.37 K/uL Eosinophils # (Auto) 0.00 K/uL Basophils # (Auto) 0.00 K/uL RDW Standard Deviation 48.7 fL RDW Coefficient of Variation 14.1 % Immature Granulocyte % (Auto) 0.2 % Immature Granulocyte # (Auto) 0.02 K/uL Sodium Level 142 mmol/L Potassium Level 3.6 mmol/L Chloride Level 105 mmol/L Carbon Dioxide Level 25 mmol/L Anion Gap 12.0 mmol/L Blood Urea Nitrogen 16 mg/dl Creatinine 0.88 mg/dl Est Creatinine Clear Calc Drug Dose 81.5 ml/min Estimated GFR () 102.9 Estimated GFR (Non- 88.8 BUN/Creatinine Ratio 17.6 Random Glucose 92 mg/dl Calcium Level 9.0 mg/dl Total Bilirubin 0.4 mg/dl Aspartate Amino Transf (AST/SGOT) 6 U/L Alanine Aminotransferase (ALT/SGPT) 18 U/L Alkaline Phosphatase 45 U/L Total Protein 6.6 gm/dl Albumin 3.8 gm/dl Globulin 2.8 gm/dl Albumin/Globulin Ratio 1.4
[2016-07-23] MEDS ORDERED: FLUTICASONE/SALMETEROL 250/50 (ADVAIR) 14 PUFF/1 INHALER INH SCH (09:00)
[2016-07-23 11:16] VITALS: BP 108/63; PULSE 76; TEMP 36.8; O2SAT 99
[2016-07-23] MEDS ORDERED: IPRATROPIUM BROMIDE/ALBUTEROL respimat INH INH PRN (14:15)
[2016-07-23] MEDS ORDERED: LEVO1TAB35 PO (14:47)
[2016-07-23] MEDS ORDERED: PRD10 PO ×2 (14:47→14:55)
[2016-07-23] MEDS ORDERED: ADVIN25050 INH (14:47)
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
--- NOTE | 2016-07-23 14:56 | Discharge Instructions ---
Discharge Instructions Admission Admission Date: Jul 20, 2016 at 18:16 Admission Diagnosis: Pneumonitis Due To Inhaled Substance. Discharge Care Plan - Problem: Medical Problems: (1) CRP elevated (2) Ground glass opacity present on imaging of lung (3) Leukocytosis (4) Mucus plugging of bronchi (5) Superficial bruising of lower leg Care Plan - Goal(s): Decrease discomfort, Improve function Care Plan - Instructions: Activity Recommendations: no limitations Recommended Home Diet: Regular Provider Instructions: Please have a follow up CT scan in 6-8 weeks Please follow/up with the pulmonary clinic for workup of your lung nodule in 4 weeks. You should be called this week with an appointment Please follow up at your scheduled appointment at your primary care clinic on 07/30/16 VTE Core Measure Inpt VTE Proph given/why not?: SCD's Beti Wood Recommendations: Call your doctor if: * Temperature above 101 degrees * Pain not relieved by pain medicine ordered * There is increased drainage or redness from any incision * You have any unanswered questions or concerns. Your Doctors Instructions noted above were prepared by provider Xochitl Larose.
--- NOTE | 2016-07-23 15:15 | Discharge Summary ---
Discharge Summary Admission Date: Jul 20, 2016 at 18:16 Discharge Date: Jul 23, 2016 Discharge Disposition: Home Principal Diagnosis: Pneumonitis/Pulmonary Nodule Problems/Secondary Diagnoses: Bipolar d/o Depression Asthma Immunizations: Have You Had Influenza Vaccine: No History of Tetanus Vaccine?: Unknown History of Pneumococcal: Yes History of Hepatitis B Vaccine: No Medication Reconciliation New Medications: Levofloxacin (Levaquin) 750 Mg Tab 750 MG PO DAILY for 2 Days, #2 TAB Fluticasone Prop/Salmeterol (Advair Diskus 250-50 Mcg/Dose) 14 Puff/1 Inhaler Aerp 1 PUFF INH BID for 30 Days, #1 Prednisone (Prednisone) 10 Mg Tab 10 MG PO DIRECTED for 7 Days, #28 TAB 40 mg daily 3 days, 30 mg daily 3 days, 20 mg daily 2 days 10 mg daily 1 then discontinue Continued Medications: Albuterol Hfa (Ventolin Hfa) 200 Puffs/97225 Mcg Aers 2-4 PUFFS INH Q6H, #1 INHALER Gabapentin (Neurontin) 300 Mg Cap 600 MG PO DAILY, CAP Discharge Exam Review of Systems: Constitutional: No chills Eyes: No worsening of vision Respiratory: No cough Cardiovascular: No chest pain Abdomen: No pain Musculoskeletal: No joint pain Genitourinary - Female: No dysuria Genitourinary - Male: No hematuria Neurologic: No paralysis Physical Exam: General Appearance: WD/WN Eyes: normal inspection ENT: normal ENT inspection Neck: supple Respiratory/Chest: chest non-tender, lungs clear Cardiovascular: regular rate, rhythm, no edema Abdomen / GI: normal bowel sounds, non tender Extremities: normal inspection Neurologic/Psychiatric: 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, no motor/sensory deficits , alert, oriented x 3 Skin: normal color, warm/dry Hospital Course Patient is a 30 y.o.F with PMHx of Asthma, Bipolar Depression, IVDA who presents with SOB and found to have pneumonitis on CT scan Pneumonitis - suspected 2/2 to inhalation pneumonitis( given recent inhalation of heroin) however treated patient for infectious bacterial pneumonia - appreciated pulmonary input - treated a 3 days of levaquin instructed to continue for total 5 day course - started on steroids and discahrged on a 10 day taper - induced sputum for mycobateria per pulmonary pending at time of discharge however unlikely Hallucinations/ with hx of bipolar d/o -psychiatry evaluated patient did not believe acute psychiatric dz - suspect 2/2 to ativan and benadryl combination Nausea and Vomiting - suspected 2/2 to heroin withdrawal - improved - RUQ ultrasound showed no acute findings - reglan and zofran Rash - thought to be 2/2 to latex - benadryl prn/listed latex as allergy Asthma - continued nebulizers and steroids as stated above - started advair per pulmonary h/o IVDA - last use 3 days prior to admission - social work consult for outpatient rehab however patient refused - ativan given prn Pulmonary Nodule - patient instructed to have followup CT in 6 weeks Tobacco Abuse - smoking cessation Full Code Disposition- discharged home in stable condition in the care of her mother who stated she would provide 24 hours supervision to the patient. F/u appointments made at patients clinic on 07/30/16. Patient will be called with f/u pulmonary appointment. Prescriptions for prednison, levaquin and advair [facility] where [facility] as patient does not have insurance Total Time Spent: Greater than 30 minutes This includes examination of the patient, discharge planning, medication reconciliation, and communication with other providers. Discharge Instructions Please refer to the electronic Patient Visit Report (Discharge Instructions) for additional information.
[2016-07-23 15:35] VITALS: BP 108/63; PULSE 76; TEMP 36.8; O2SAT 99
[2016-07-23 16:21] LABS: COD UR NEGATIVE NG/ML (CUTOFF=50); HYDROCOD UR NEGATIVE NG/ML (CUTOFF=50); HYDROMOR UR 272 NG/ML (CUTOFF=50); MORPHINE UR 8420 NG/ML (CUTOFF=50); NORHYDROCODONE CONF UR NEGATIVE NG/ML (CUTOFF=50); OXYMORPH UR NEGATIVE NG/ML (CUTOFF=50)
[2016-07-23] MEDS ORDERED: IPRATROPIUM BROMIDE/ALBUTEROL respimat INH INH SCH (17:00)
[2016-07-25 22:15] LABS: VIT B1 PLASMA(THIAMIN)**90353 43 nmol/L (8-30)
[2016-07-27 13:05] LABS: ANA TITER 1:40 TITER (<1:40)
== END 2016-07-23 16:04 | disposition home or self-care (01) | DRG 178 ==
LOC: ENRESERVDT → ENRESERVTM → C.EDB 12:19 → C.2E 18:16
PROVIDERS: ADMIT Hospitalist; ATTEND Hospitalist
DX: J69.0 Pneumonitis due to inhalation of food and vomit (principal); R44.3 Hallucinations, unspecified; F11.23 Opioid dependence with withdrawal; T17.590A Other foreign object in bronchus causing asphyxiation, initial encounter; J45.901 Unspecified asthma with (acute) exacerbation; T42.4X5A Adverse effect of benzodiazepines, initial encounter; T45.0X5A Adverse effect of antiallergic and antiemetic drugs, initial encounter; T40.1X2A Poisoning by heroin, intentional self-harm, initial encounter; R11.2 Nausea with vomiting, unspecified; T65.811A Toxic effect of latex, accidental (unintentional), initial encounter; L23.89 Allergic contact dermatitis due to other agents; Y92.239 Unspecified place in hospital as the place of occurrence of the external cause; J15.9 Unspecified bacterial pneumonia; R06.89 Other abnormalities of breathing; S80.12XA Contusion of left lower leg, initial encounter; S80.11XA Contusion of right lower leg, initial encounter; X58.XXXA Exposure to other specified factors, initial encounter; J31.0 Chronic rhinitis; R91.8 Other nonspecific abnormal finding of lung field; F12.10 Cannabis abuse, uncomplicated; F10.10 Alcohol abuse, uncomplicated; F31.9 Bipolar disorder, unspecified; F41.0 Panic disorder [episodic paroxysmal anxiety]; F17.210 Nicotine dependence, cigarettes, uncomplicated; Z86.19 Personal history of other infectious and parasitic diseases; Z23 Encounter for immunization; Z91.5 Personal history of self-harm; Z79.899 Other long term (current) drug therapy

== ENCOUNTER → 2016-09-28 | Outpatient (CLI) | payer OTHER ==
[~2016-09-28] MED LIST changes: -ACETTAB19 PO; +ADVIN25050 INH; -CALC500C3 PO; +GABA-113 PO; -HYDR-5688 PO; -IPRA1AER2 INH; +PRD10 PO; -PROC1TAB5 PO; +VNTHFA/IN INH
--- NOTE | 2016-09-28 16:00 | DIAGNOSTIC IMAGING REPORT ---
CT SCAN OF THE CHEST WITHOUT IV CONTRAST CLINICAL HISTORY: Pulmonary nodule. COMPARISON STUDY: Chest CT dated 07/20/2016. TECHNIQUE: CT scan of the thorax was performed from the thoracic inlet to the upper abdomen. Images are reviewed in the axial, sagittal, and coronal planes. IV contrast was not administered for this examination as per the referring clinician. CT DOSE: 202.97 mGy.cm FINDINGS: Thyroid: Imaged portions of the thyroid gland are normal in size and attenuation. There is a 6 cm low-attenuation nodule in the left lobe. Thoracic aorta: The thoracic aorta is normal in caliber and demonstrates standard 3-vessel arch anatomy. Heart: The heart is normal in size and without pericardial effusion. Lungs and pleural spaces: The lungs and pleural spaces are clear. Groundglass opacities in the right upper and middle lobes seen on 07/20/2016 have resolved. Trachea and central airways are patent. Mediastinum: There is no mediastinal lymphadenopathy. Yesenia: Not well assessed without IV contrast. Axillae: There is no axillary lymphadenopathy. Upper abdomen: Partially visualized upper abdominal viscera is within normal limits. Skeletal structures: No lytic or blastic bony lesions are seen. IMPRESSION: 1. The lungs are clear. 2. Airspace opacities in the right upper and middle lobes seen on 07/20/2016 have resolved and were likely on an infectious/inflammatory basis. 3. There is a subcentimeter low-attenuation nodule in the left lobe of the thyroid gland. Precautionary sonographic follow-up is recommended. Electronically signed by: Edi Benitez M.D. 09/28/2016 3:57 PM Dictated Date/Time: 09/28/2016 3:54 PM
== END | disposition home or self-care (01) ==
LOC: C.CTS 15:13
PROVIDERS: ATTEND Internal Medicine Critical Care Medicine
DX: R93.8 Abnormal findings on diagnostic imaging of other specified body structures (principal); J18.9 Pneumonia, unspecified organism; R91.1 Solitary pulmonary nodule; E04.1 Nontoxic single thyroid nodule

== ENCOUNTER → 2017-10-05 | Outpatient (CLI) | payer OTHER ==
[2017-10-05 17:59] LABS: ALT/SGPT 20 U/L (12-78); AST/SGOT 14 U/L (15-37); BLOOD UREA NITROGEN 17 mg/dl (7-18); CALCIUM 9.2 mg/dl (8.5-10.1); CARBON DIOXIDE 29 mmol/L (21-32); CREATININE 0.85 mg/dl (0.60-1.20); GLUCOSE 99 mg/dl (70-99); POTASSIUM 3.7 mmol/L (3.5-5.1); SODIUM 134 mmol/L (136-145)
[2017-10-05 18:02] LABS: BASO % 0.1 %; BASO ABS # 0.01 K/uL (0-0.2); EOS % 1.1 %; EOS ABS # 0.08 K/uL (0-0.5); HEMATOCRIT 40.2 % (37-47); HEMOGLOBIN 13.6 g/dL (12.0-16.0); IG# 0.01 K/uL (0.00-0.02); LYMPH % 18.9 %; LYMPH ABS # 1.37 K/uL (1.2-3.4); MEAN CELL VOLUME 94.1 fL (80-100); MEAN CORPUSCULAR HEMOGLOBIN 31.9 pg (25-34); MEAN CORPUSCULAR HGB CONC 33.8 g/dl (32-36); MEAN PLATELET VOLUME 10.7 fL (7.4-10.4); MONO ABS # 0.65 K/uL (0.11-0.59); NEUT % 70.8 %; NEUT ABS # 5.13 K/uL (1.4-6.5); PLATELET COUNT 247 K/uL (130-400); RED CELL DISTRIBUTION WIDTH CV 14.3 % (11.5-14.5); RED CELL DISTRIBUTION WIDTH SD 48.9 fL (36.4-46.3); WHITE BLOOD COUNT 7.25 K/uL (4.8-10.8)
[2017-10-05 18:09] LABS: ALKALINE PHOSPHATASE 46 U/L (45-117); TOTAL PROTEIN 7.6 gm/dl (6.4-8.2)
== END | disposition home or self-care (01) ==
LOC: C.LAB1850 16:48
PROVIDERS: ATTEND Internal Medicine
DX: N92.6 Irregular menstruation, unspecified (principal); E04.1 Nontoxic single thyroid nodule; D72.829 Elevated white blood cell count, unspecified; F41.9 Anxiety disorder, unspecified

== ENCOUNTER → 2017-10-15 | Outpatient (CLI) | payer OTHER ==
--- NOTE | 2017-10-15 11:37 | DIAGNOSTIC IMAGING REPORT ---
THYROID ULTRASOUND CLINICAL HISTORY: Thyroid nodule. COMPARISON STUDY: Chest CT September 28, 2016. TECHNIQUE: Sonography of the thyroid gland was performed. FINDINGS: The right thyroid lobe measures 3.5 x 1.4 x 1 cm and the left thyroid lobe measures 3.4 x 1.4 x 1.2 cm. The gland is homogeneous. No thyroid nodules are present. The possible left lobe nodule shown on CT of September 28, 2016 and was likely artifactual. This is not confirmed by sonography. IMPRESSION: Normal thyroid ultrasound. No thyroid nodules identified. The possible left lobe thyroid nodule shown on CT of September 28, 2016 and was likely artifactual. Electronically signed by: Fuentes Garza M.D. 10/15/2017 11:36 AM Dictated Date/Time: 10/15/2017 11:33 AM
== END | disposition home or self-care (01) ==
LOC: C.ULTR 11:15
PROVIDERS: ATTEND Internal Medicine
DX: E04.1 Nontoxic single thyroid nodule (principal)

== ENCOUNTER → 2017-10-25 | Outpatient (CLI) | payer OTHER | END | disposition home or self-care (01) | LOC: C.PAPS 14:13 | PROVIDERS: ATTEND Physician Assistant | DX: R87.612 Low grade squamous intraepithelial lesion on cytologic smear of cervix (LGSIL) (principal); N92.6 Irregular menstruation, unspecified ==

== ENCOUNTER 2019-02-19 02:40 | Inpatient (IN) ==
[2019-02-19] MEDS ORDERED: OXYTOCIN 30 UNITS/500 ML BAG IV PRN (02:51)
[2019-02-19] MEDS ORDERED: LACTATED RINGER'S 1,000 ML IV PRN ×2 (02:51)
[2019-02-19 03:22] LABS: Hematocrit (blood only) 40.9 % (37-47); Hemoglobin 13.9 g/dL (12.0-16.0); Mean Corpuscular Hemoglobin 30.5 pg (25-34); Mean Corpuscular Volume 89.9 fL (80-100); Mean Platelet Volume 12.2 fL (7.4-10.4); Nucleated RBC # (auto) 0.03 K/uL (0-0); Nucleated RBC % (auto) 0.2 %; Platelet Count 204 K/uL (130-400); RDW Coefficient of Variation 14.2 % (11.5-14.5); RDW Standard Deviation 46.4 fL (36.4-46.3); Red Blood Count 4.55 M/uL (4.2-5.4); White Blood Count 19.35 K/uL (4.8-10.8)
--- NOTE | 2019-02-19 04:07 | History & Physical Report ---
Date of Service February 19, 2019 Assessment & Plan (1) Supervision of normal first : heart rate tracing category 2 variability and decelerations, difficult to monitor secondary to patient discomfort will begin second stage, anticipate vaginal delivery (2) Bipolar disorder: (3) Substance use disorder: History of Present Illness Chief Complaint: labor Primary Care Provider: Patrick Arias MD The patient is a 33-year-old 1 para 0 with an EDC of February by first trimester ultrasound who presents at 38+ weeks gestational age in active labor. Patient's contractions began in the evening prior to admission and increased in intensity. Patient states that her membranes ruptured sometime around 100 hours on day of delivery. The patient course has been unremarkable. The patient does have a history of heroin use and has been sober for the last 10 months. She has not on any medication for this. The patient carries a diagnosis of bipolar disease and has been on Cymbalta 60 mg for the . The patient also had a LEEP excision of her transformation zone in April 2018 for JOSE RAFAEL-3. Laboratory values for the show blood type of A+, antibody negative, rubella immune, hepatitis B negative, she declined cell free DNA screening, she had a negative quad screen, she had an elevated 1 hour Glucola at 16 weeks, with normal glucose tolerance test of both 16 and 28 weeks, she had a negative third trimester beta strep culture Allergies Allergy/AdvReac Type Severity Reaction Status Date / Time latex Allergy Mild RASH Verified 02/16/19 13:38 bee venom protein (honey bee) Allergy Unknown swelling,SO Verified 02/16/19 13:38 B Home Medications Home Medications Medication Instructions Recorded Confirmed Type duloxetine [Cymbalta] 60 mg PO DAILY 02/17/19 02/17/19 History vit no.[id number] 1 tab PO DAILY 02/17/19 02/17/19 History [ Vitamin] Patient History Medical History Depression Anxiety (Chronic) On meds Abdominal pain (Resolved 11/18/13) Acute gastritis (Resolved) Acute gastroenteritis (Resolved) Constipation (Resolved) Dehydration (Resolved 11/18/13) Erythema migrans (Lyme disease) (Resolved) Intractable abdominal pain (Resolved) Nausea, vomiting and diarrhea (Resolved) Ruptured ovarian cyst (Resolved) Vomiting (Resolved) Abnormal Pap smear of cervix 2017 Depression On meds History of substance abuse Heroin; clean for over 10 months; no current medication History of varicella PTSD (post-traumatic stress disorder) Pulmonary nodule Suicidal thoughts Admitted to [facility] 07/2018 Surgical History H/O LEEP 04/2018 S/P wisdom tooth extraction Family History Mother Anxiety and depression Hypertension Sister Anxiety and depression History of ovarian cyst Grandfather (Maternal) Diabetes Brother Multiple gestation Family/Other Multiple gestation cousin Other Sudden Social History Preferred Language: Syriac marital status: Single Feels Safe at Home: Yes Smoking Status: Never smoker Tobacco Type: cigarettes ; Second Hand Exposure: No ; Hx Alcohol Use: No Hx Substance Use: No Physical Exam Constitutional: WD/WN, vitals as above Respiratory: Auscultation: lungs clear to auscultation bilaterally Cardiovascular: RRR, no murmur, no edema Extremities: no calf tenderness Gastrointestinal (Abdomen): Gravid, vertex, positive heart tones, estimated weight of 7 pounds Genitourinary: OB Exam Monitor Tracing: + category II, + normal FHT variability and + variable decelerations Per nursing, cervix complete, +2 station Results & Data Vital Signs (Past 12 Hours) Vital Signs Pulse BP 02/19/19 03:53 115 H 147/96 H Code Status & VTE Plan VTE Prophylaxis Plan VTE Prophylaxis will be ordered: No
--- NOTE | 2019-02-19 04:12 | Delivery Summary ---
Vaginal Delivery Summary Date of Service February 19, 2019 Findings: Viable female infant with Apgars of 9 and 10 baby delivered over mi dline episiotomy cord gases cord blood samples obtained placenta delivered spontaneously episiotomy repaired with 402 0 Vicryl in a routine fashion estimated blood loss 300 cc Labor note: The patient is a 33-year-old 1 para 0 at 38+ weeks gestational age who presented to labor and delivery fully dilated. Patient's contractions have began earlier this evening and increased in intensity. Patient with a history of bipolar disorder on Cymbalta throughout the . Patient with a history of substance use disorder clean for 10 months. Laboratory values for the show blood type of a positive, antibody negative, rubella immune, hepatitis B negative, elevated 1 hour Glucola at 16 weeks with normal 2-hour glucose tolerance test 616 and 28 weeks, declined cell free DNA screening, negative quad screen, and a negative third trimester beta strep culture. Upon admission patient was fully dilated began her second stage to push for approximately 1 hour delivering a viable female in a ROP presentation cord gases cord blood samples obtained placenta delivered spontaneously episiotomy repaired with 4-0 Vicryl in a routine fashion blood loss 300 cc sponge needle count was correct.
[2019-02-19] MEDS ORDERED: SUPERCREAM 0.870% 15 GM JAR EXT PRN (04:36)
[2019-02-19] MEDS ORDERED: BENZOCAINE 20% AER SPR 82.5 GM CAN EXT PRN (04:36)
[2019-02-19] MEDS ORDERED: DIPHTHERIA/TETANUS/PERTUSSIS 0.5 ML SYR/VIAL IM ONE (04:36)
[2019-02-19] MEDS ORDERED: OXYTOCIN 10 UNITS/ML VIAL IM ONE (04:36)
[2019-02-19] MEDS ORDERED: HYDROCORTISONE ACETATE 25 MG SUPP PR PRN (04:36)
[2019-02-19] MEDS ORDERED: ACETAMINOPHEN 325 MG TAB PO PRN (04:36)
[2019-02-19 04:39] LABS: Base Excess Cord Venous Blood -8.5 mEq/L (-7.7-1.9); Cord Venous Blood HCO3 20 mmol/L (18.4-26.8); Cord Venous Blood PCO2 50 mmHg (30.4-57.2); Cord Venous Blood PO2 22 mmHg (14.1-43.3); Cord Venous Blood pH 7.21 (7.20-7.44)
[2019-02-19 04:40] LABS: Base Excess Cord Arterial Bld -11.9 mEq/L (-9-1.8); CO2 Cord Arterial Blood 71 mmHg (39.1-73.5); HCO3 Cord Arterial Blood 20 mmol/L (19.7-28.5); PO2 Cord Arterial Blood 19.8 % (4.1-31.7); pH Cord Arterial Blood 7.07 (7.1-7.38)
[2019-02-19 05:00] LABS: O2 Saturation Cord Venous Bld < 60.0 % (<68); Oxygen Sat Cord Arterial Blood < 60.0 % (<60)
[2019-02-19] MEDS: PRENATAL VITAMIN 1 TAB PO SCH (08:40)
[2019-02-19] MEDS: FERROUS SULFATE 325 MG TAB PO SCH (08:40)
[2019-02-19] MEDS: DOCUSATE SODIUM 100 MG CAP PO SCH ×2 (08:41→19:46)
[2019-02-19] MEDS: DULOXETINE HCL 60 MG CAP PO SCH (08:41)
[2019-02-19] MEDS: IBUPROFEN 600 MG TAB PO PRN ×2 (11:53→19:47)
--- NOTE | 2019-02-20 06:31 | Obstetrical Progress Note ---
Date of Service February 20, 2019 Assessment & Plan (1) : -PPD#1 -Vitals reviewed, WNL (Tmax 37.0) - GBS -, Blood Type A+ - Clinically stable. - Feels well today. Eating well, voiding well, ambulating well. - Pain well controlled. - Routine post- care - Questions answered this morning. Day #:: 1 Subjective Ambulation: ambulating normally Voiding: no voiding problems Passing Gas:: Yes Diet Tolerance:: regular diet Lochia:: Moderate Feeding Type:: breast feeding Current Pain Level(1-10): 2 (improves with analgesics) Patient is a 33 PPD#1. Patient states that she is feeling well today and that her pain is well controlled. She has no other complaints at this time. Constitutional: no fever and no chills Respiratory: no cough, no dyspnea and no wheezing Cardiovascular: no chest pain, no dyspnea, no palpitations, no edema and no calf pain Breast: no breast pain Gastrointestinal: no abdominal pain, no nausea and no vomiting Genitourinary (female): no dysuria and no difficulty urinating Neurologic: no headache(s) Physical Exam Constitutional WD/WN, vitals as above Respiratory normal respiratory effort, lungs clear to auscultation Cardiovascular Rate/Rhythm: regular rate and regular rhythm Heart Sounds: normal S1 and normal S2; no click, no gallop, no murmur and no cardiac rub Extremities: no calf tenderness and no edema Gastrointestinal (Abdomen) Inspection/Auscultation: abdomen normal to inspection and normal bowel sounds Percussion/Palpation: abdomen soft; abdomen nontender Genitourinary OB Exam Abdomen: + fundal height Fundus: + firm and + relation to umbilicus (2.5 cm below); not tender and not boggy Results & Data Vital Signs (Past 12 Hours) Vital Signs Temp Pulse Resp BP Pulse Ox 02/19/19 23:25 36.9 C 104 H 16 127/83 96 02/19/19 19:35 36.7 C 90 16 137/91 97 Medications Administered Current Inpatient Medications Acetaminophen (Tylenol) 650 mg PO Q6H PRN PRN Reason: Pain/ANDREWS/Fever Stop: 03/21/19 04:35 Benzocaine (Dermoplast Pain Relieving [place]) 1 appln EXT PRN PRN PRN Reason: Perineal Discomfort Stop: 03/21/19 04:35 Last Admin: 02/19/19 17:06 Dose: 82.5 appln Documented by: Bisacodyl (Dulcolax) 5 mg PO 1999 [facility] Stop: 02/20/19 20:01 Cocaine HCl (Supercream 0.870%) 1 gm EXT BID PRN PRN Reason: Hemorrhoidal Inflammation Stop: 03/05/19 04:35 Docusate Sodium (Colace) 100 mg PO DAILY@08,21 [facility] Stop: 03/21/19 07:59 Last Admin: 02/19/19 19:46 Dose: 100 mg Documented by: Duloxetine HCl (Cymbalta) 60 mg PO DAILY [facility] Stop: 03/21/19 08:59 Last Admin: 02/19/19 08:41 Dose: 60 mg Documented by: Ferrous Sulfate (Feosol) 325 mg PO DAILY@08 [facility] Stop: 03/21/19 07:59 Last Admin: 02/19/19 08:40 Dose: 325 mg Documented by: Hydrocortisone (Anusol Hc) 25 mg MA BID PRN PRN Reason: Hemorrhoidal Inflammation Stop: 03/21/19 04:35 Ibuprofen (Motrin) 600 mg PO Q4H PRN PRN Reason: Pain/ANDREWS/Cramping/Fever Stop: 03/21/19 04:35 Last Admin: 02/19/19 19:47 Dose: 600 mg Documented by: Gibran Multivit/Network Operations Center Engineer/Iron/Folic Ac ( Vitamin) 1 tab PO DAILY@08 [facility] Stop: 03/21/19 07:59 Last Admin: 02/19/19 08:40 Dose: 1 tab Documented by:
[2019-02-20 06:34] LABS: Hematocrit (blood only) 33.2 % (37-47); Hemoglobin 10.9 g/dL (12.0-16.0); Mean Corpuscular Hemoglobin 29.8 pg (25-34); Mean Corpuscular Hgb Conc 32.8 g/dL (32-36); Mean Corpuscular Volume 90.7 fL (80-100); Mean Platelet Volume 11.6 fL (7.4-10.4); Platelet Count 176 K/uL (130-400); RDW Coefficient of Variation 14.7 % (11.5-14.5); RDW Standard Deviation 47.7 fL (36.4-46.3); Red Blood Count 3.66 M/uL (4.2-5.4); White Blood Count 12.44 K/uL (4.8-10.8)
[2019-02-20] MEDS: DULOXETINE HCL 60 MG CAP PO SCH (08:30)
[2019-02-20] MEDS: DOCUSATE SODIUM 100 MG CAP PO SCH ×2 (08:30→21:00)
[2019-02-20] MEDS: FERROUS SULFATE 325 MG TAB PO SCH (08:30)
[2019-02-20] MEDS: PRENATAL VITAMIN 1 TAB PO SCH (08:30)
[2019-02-20] MEDS: IBUPROFEN 600 MG TAB PO PRN ×2 (08:31→18:33)
[2019-02-20] MEDS ORDERED: BISACODYL 5 MG TABEC PO SCH (20:00)
[2019-02-21 06:18] LABS: Hematocrit (blood only) 30.9 % (37-47)
--- NOTE | 2019-02-21 06:21 | Obstetrical Progress Note ---
Date of Service <Luciano Fraser DO - Last Filed: 02/21/19 06:21> February 21, 2019 Assessment & Plan <DO Indu Currie Last Filed: 02/21/19 06:21> (1) : -PPD#2 -Vitals reviewed, WNL (Tmax 37.2) - GBS -, Blood Type A+ - Clinically stable. - Feels well today. Eating well, voiding well, ambulating well. - Pain well controlled. - Routine post- care - Questions answered this morning. - Discussed with patient about discharge instructions, medications to be sent home with patient, follow up appointment discussed. Day #:: 2 Subjective <DO Indu Currie Last Filed: 02/21/19 06:21> Ambulation: ambulating normally Voiding: no voiding problems Passing Gas:: Yes Diet Tolerance:: regular diet Lochia:: Moderate Feeding Type:: breast feeding Current Pain Level(1-10): 2 (improve with analgesics) Patient is a 33 PPD#2. Patient states that she is feeling well today and that her pain is well controlled. She has no other complaints at this time. Constitutional: no fever and no chills Respiratory: no cough, no dyspnea and no wheezing Cardiovascular: no chest pain, no dyspnea, no palpitations, no edema and no calf pain Breast: no breast pain Gastrointestinal: no abdominal pain, no nausea and no vomiting Genitourinary (female): no dysuria and no difficulty urinating Neurologic: no headache(s) Physical Exam <DO Indu Currie Last Filed: 02/21/19 06:21> Constitutional WD/WN, vitals as above Respiratory normal respiratory effort, lungs clear to auscultation Cardiovascular Rate/Rhythm: regular rate and regular rhythm Heart Sounds: normal S1 and normal S2; no click, no gallop, no murmur and no cardiac rub Extremities: no calf tenderness and no edema Gastrointestinal (Abdomen) Inspection/Auscultation: abdomen normal to inspection and normal bowel sounds Percussion/Palpation: abdomen soft; abdomen nontender Genitourinary OB Exam Abdomen: + fundal height Fundus: + firm and + relation to umbilicus (4.5 cm below); not tender and not boggy Results & Data <Luciano Alexdoron DO [place] Last Filed: 02/21/19 06:21> Vital Signs (Past 12 Hours) Vital Signs Temp Pulse Resp BP Pulse Ox 02/20/19 22:56 37.2 C 100 H 18 110/69 98 02/20/19 19:46 36.7 C 96 H 18 123/81 96 <Juliann John MD - Last Filed: 02/21/19 06:57> Co-Signing Physician Notes I have reviewed the resident's note and examined the patient myself, and agree with the note above. Resident Activity Tracking <Luciano Fraser DO - Last Filed: 02/21/19 06:21> Resident Involvement: Resident Care Provided Care Provided: OB Delivery
[2019-02-21] MEDS: DOCUSATE SODIUM 100 MG CAP PO SCH (08:58)
[2019-02-21] MEDS: PRENATAL VITAMIN 1 TAB PO SCH (08:58)
[2019-02-21] MEDS: FERROUS SULFATE 325 MG TAB PO SCH (08:58)
[2019-02-21] MEDS: DULOXETINE HCL 60 MG CAP PO SCH (08:59)
[2019-02-21] MEDS: IBUPROFEN 600 MG TAB PO PRN (08:59)
== END 2019-02-21 11:15 | disposition home or self-care (01) | DRG 807 ==
LOC: OPB 02:40 → 4S1 02:42 → 4S2 06:50

== ENCOUNTER 2021-03-22 12:24 | Inpatient (IN) ==
[2021-03-22] MEDS ORDERED: PENICILLIN G POTASSIUM 6 MU in DEXTROSE 5% 250 ML IV STA (12:44)
[2021-03-22] MEDS ORDERED: OXYTOCIN 30 UNITS/500 ML BAG IV PRN ×2 (12:44→18:28)
[2021-03-22] MEDS: LACTATED RINGER'S 1,000 ML IV PRN ×2 (13:01→14:57)
[2021-03-22 13:08] LABS: Hematocrit (blood only) 37.6 % (37-47); Mean Corpuscular Hemoglobin 26.6 pg (25-34); Mean Corpuscular Hgb Conc 31.9 g/dL (32-36); Mean Corpuscular Volume 83.4 fL (80-100); Mean Platelet Volume 13.5 fL (7.4-10.4); Nucleated RBC # (auto) 0.12 K/uL (0-0); Nucleated RBC % (auto) 0.8 %; Platelet Count 230 K/uL (130-400); RDW Coefficient of Variation 14.4 % (11.5-14.5); RDW Standard Deviation 44.2 fL (36.4-46.3); Red Blood Count 4.51 M/uL (4.2-5.4); White Blood Count 15.29 K/uL (4.8-10.8)
--- NOTE | 2021-03-22 13:10 | History & Physical Report ---
Date of Service March 22, 2021 Assessment & Plan (1) Gestational diabetes mellitus (GDM) affecting , antepartum: Plan: IUP at 38 weeks with SPROM and spontaneous labor GDM dietcontrolled bipolar disorder on meds begin PCN prophylaxis epidural when requested peds to be notified of pyelectesis anticipate vaginal Admission and Anticipated Discharge Date Admission Date: March 22, 2021 History of Present Illness Primary Care Provider: Patrick Arias MD Patient is a 35 yo white female who presents at 38 weeks SPROM- contractions started after SPROM this am. complicated by GDM- diet controlled and bipolar disorder for which she is on a multiple med regimen. Also there is pyelectesis which was stable on 36 week scan. blood type A (+) GBS (+) Allergies Allergy/AdvReac Type Severity Reaction Status Date / Time bee venom protein (honey bee) Allergy Severe swelling,SO Verified 03/18/21 11:01 B latex Allergy Mild RASH Verified 03/18/21 11:01 Home Medications Medication Instructions Recorded Confirmed Type aripiprazole 10 mg tablet (Abilify) 10 mg PO QAM 07/31/19 03/18/21 History duloxetine 60 mg capsule,delayed 120 mg PO DAILY #14 cap 04/08/20 03/18/21 Rx release acetone (urine) test (Ketone Urine #50 ea 01/31/21 03/18/21 Rx Test) blood sugar diagnostic (OneTouch #150 ea 01/31/21 03/18/21 Rx Verio test strips) blood-glucose meter (OneTouch #1 ea 01/31/21 03/18/21 Rx Verio Flex meter) lancets 33 gauge (OneTouch Delica #150 ea 01/31/21 03/18/21 Rx Plus Lancet) bupropion HCl 150 mg tablet,12 hr 300 mg PO DAILY ea 02/05/21 03/18/21 History sustained-release (Wellbutrin SR) Patient History Medical History Anxiety Bipolar disorder Blood in stool Depression Erythema migrans (Lyme disease) History of anesthesia reaction History of heroin use History of substance abuse History of tobacco use PTSD (post-traumatic stress disorder) Ruptured ovarian cyst Surgical History H/O colposcopy with cervical biopsy H/O LEEP History of surgery S/P wisdom tooth extraction Family History Mother Anxiety and depression Hypertension Sister Anxiety and depression History of ovarian cyst Ovarian cyst Grandfather (Maternal) Diabetes Brother Multiple gestation Family/Other Multiple gestation cousin Grandmother (Maternal) Myocardial infarction Other Coronary heart disease No family history of adverse response to anesthesia Sudden Denies family history of Ovarian cancer Prostate cancer Breast cancer Colorectal cancer Social History Smoking Status: Never smoker Age Quit Using Tobacco: 32; packs per day: 0.5; Years Smoked: 17; Second Hand Exposure: Yes (parents smoked); Hx Alcohol Use: No Hx Substance Use: Yes Last Used Substance: Days (ago) Last Used Substance Other:: marijuana used 06/22/2019 Substance Use Type Other:: used heroin from age [age] Preferred Language: Persian Communication Ability: Effective Agricultural Services Director Required: No Beliefs That Will Affect Care: None marital status: Single marital status details: FOB: Edi(38) [phone] Current Living Situation: Family and Significant Other Current Living Situation Comment: lives with boyfriend and daughter current occupational status: employed current occupation: [employer] Feels Safe at Home: Yes Childhood Exposure to Second-Hand Smoke: No Dental Care, Regularly: Yes Physical Activity Frequency: 3-4 Times per Week Assistive Devices: None Review of Systems All systems reviewed & are unremarkable except as noted in HPI & below Physical Exam Constitutional: WD/WN, vitals as above Psychiatric: A+Ox3, euthymic affect Genitourinary: OB Exam Abdomen: + vertex, + estimated weight (6-7 pounds) and + regular contractions Manual OB Exam: + cervical dilation 6 cm (6-7 cm per nurse's exam) OB Exam Monitor Tracing: + external FHT monitor used, + external uterine monitor used, + category I and + normal FHT variability Results & Data ([facility]) Vital Signs (Past 12 Hours) Vital Signs Pulse BP 03/22/21 13:00 89 146/95 H Code Status & VTE Plan VTE Prophylaxis Plan VTE Prophylaxis will be ordered: No Coding Level of Care Code None Diagnoses Gestational diabetes mellitus (GDM) affecting , antepartum O24.419
[2021-03-22] MEDS ORDERED: SODIUM CHLORIDE 0.9% INJ 10 ML VIAL ONE (13:24)
[2021-03-22] MEDS ORDERED: BUPIVACAINE 0.25% 30 ML VIAL ONE ×2 (13:24→15:34)
[2021-03-22] MEDS ORDERED: ePHEDrine sulfate 50 MG/ML AMP ONE (13:24)
[2021-03-22] MEDS ORDERED: fentaNYL citrate 100 MCG/2 ML VIAL ONE (13:24)
[2021-03-22] MEDS ORDERED: fentaNYL 2MCG/ML ROPIVACAINE 1.25MG/ML 100 ML BAG EPI ONE (13:25)
--- NOTE | 2021-03-22 13:37 | Anesthesiology Consultation ---
Date of Service March 22, 2021 Assessment & Plan (1) Encounter for pre-operative examination: Chart Review Chart Review: Acceptable Risk for Labor Epidural Consults Requested none ASA ASA2 Proposed Anesthesia Anesthesia Type: Labor Epidural Risk / Benefits Reviewed With: PT / POA / Parent / Guardian, Accepts Plan and Informed Consent Obtained History Allergies Allergy/AdvReac Type Severity Reaction Status Date / Time bee venom protein (honey bee) Allergy Severe swelling,SO Verified 03/18/21 11:01 B latex Allergy Mild RASH Verified 03/18/21 11:01 Medications Home Medications Medication Instructions Recorded Confirmed Last Taken aripiprazole 10 mg tablet (Abilify) 10 mg PO QAM 07/31/19 03/18/21 04/08/20 duloxetine 60 mg capsule,delayed 120 mg PO DAILY #14 cap 04/08/20 03/18/21 Unknown release acetone (urine) test (Ketone Urine #50 ea 01/31/21 03/18/21 Unknown Test) blood sugar diagnostic (OneTouch #150 ea 01/31/21 03/18/21 Unknown Verio test strips) blood-glucose meter (OneTouch #1 ea 01/31/21 03/18/21 Unknown Verio Flex meter) lancets 33 gauge (OneTouch Delica #150 ea 01/31/21 03/18/21 Unknown Plus Lancet) bupropion HCl 150 mg tablet,12 hr 300 mg PO DAILY ea 02/05/21 03/18/21 Unknown sustained-release (Wellbutrin SR) Active Medications Generic Name Dose Route Start Last Admin Trade Name Freq PRN Reason Stop Dose Admin Lactated Ringer's 1,000 mls @ 125 mls/hr 03/22/21 12:44 03/22/21 13:01 Lr IV 03/24/21 12:43 999 mls/hr .Q8H PRN Administration L&D Protocol Protocol Past Medical History Medical History Anxiety On meds Bipolar disorder Blood in stool Depression On meds Erythema migrans (Lyme disease) History of anesthesia reaction difficulty waking after birthmark removal sx History of heroin use History of substance abuse Heroin; clean for 2+ years; no current medication History of tobacco use PTSD (post-traumatic stress disorder) Ruptured ovarian cyst Exercise / Class Metabolic Activity II 4-5 Yardwork/Stairs/Walk up hill Past Family History Family History Mother Anxiety and depression Hypertension Sister Anxiety and depression History of ovarian cyst Ovarian cyst Grandfather (Maternal) Diabetes Brother Multiple gestation Family/Other Multiple gestation cousin Grandmother (Maternal) Myocardial infarction Other Coronary heart disease No family history of adverse response to anesthesia Sudden Denies family history of Ovarian cancer Prostate cancer Breast cancer Colorectal cancer Past Surgical History Surgical History H/O colposcopy with cervical biopsy 12/30/17: HGSIL (moderate - severe dysplasia, JOSE RAFAEL 2-JOSE RAFAEL 3) H/O LEEP 05/04/18: LGSIL (JOSE RAFAEL 1) History of surgery birthmark removed off head S/P wisdom tooth extraction Past Anesthesia History No Hx of Anesthesia Complications and No Family Hx of Anesthesia Complications History of PONV No Hx of PONV and No Hx of Motion Sickness Social History Smoking Status: Never smoker tobacco type: cigarettes Hx Alcohol Use: No Hx Substance Use: Yes substance use type: former substance user, marijuana and heroin Substance Use Type Other:: used heroin from age [age] Last Used Substance: Days (ago) Last Used Substance Other:: marijuana used 06/22/2019 Physical Exam Vital Signs Last Vital Signs Temp 97.3 F L 03/22/21 13:00 Pulse 89 03/22/21 13:00 Resp 22 03/22/21 13:00 BP 146/95 H 03/22/21 13:00 ENMT Mouth: no dentition abnormality Thyromental Distance: > or= 3.5 Finger Breadths Mallampati Class: II Neck normal visual inspection Respiratory normal respiratory effort Auscultation: lungs clear to auscultation bilaterally Cardiovascular Rate/Rhythm: regular rate and regular rhythm Testing Laboratory Results 03/22/21 12:52
[2021-03-22] MEDS ORDERED: fentaNYL 2MCG/ML ROPIVACAINE 1.25MG/ML 100 ML BAG EPI PRN (13:57)
[2021-03-22] MEDS ORDERED: ePHEDrine sulfate 50 MG/ML AMP IV PRN (13:57)
[2021-03-22] MEDS ORDERED: NALOXONE HCL 1 MG in SODIUM CHLORIDE 0.9% 1000ML 1,000 ML IV PRN (13:57)
[2021-03-22] MEDS ORDERED: ONDANSETRON INJ 2 MG/ML 2 ML VIAL IV PRN (13:57)
[2021-03-22] MEDS ORDERED: diphenhydrAMINE 50 MG/ML VIAL IV PRN (13:57)
[2021-03-22] MEDS ORDERED: NALOXONE HCL 0.4 MG/1 ML VIAL/CARP IV PRN (13:57)
[2021-03-22] MEDS ORDERED: NALBUPHINE HCL INJ 10 MG/ML AMP IV PRN (13:57)
[2021-03-22] MEDS ORDERED: FLUARIX QUADRIVALENT 0.5 ML SYR IM ONE (14:18)
[2021-03-22] MEDS: CALCIUM CARBONATE 500 MG CHEWABLE TAB PO PRN (14:38)
[2021-03-22] MEDS ORDERED: PENICILLIN G POTASSIUM 3 MU in DEXTROSE 5% 100 ML IV PRN (16:56)
[2021-03-22] MEDS ORDERED: bisacodyL 10 MG SUPP PR PRN (18:28)
[2021-03-22] MEDS ORDERED: oxyCODONE/ACETAMINOPHEN 5mg/325mg TAB PO PRN (18:28)
[2021-03-22] MEDS ORDERED: HYDROCORTISONE ACETATE 25 MG SUPP PR PRN (18:28)
[2021-03-22] MEDS ORDERED: SUPERCREAM 0.870% 15 GM JAR EXT PRN (18:28)
[2021-03-22] MEDS ORDERED: ACETAMINOPHEN 325 MG TAB PO PRN (18:28)
[2021-03-22] MEDS ORDERED: BENZOCAINE 20% AER SPR 82.5 GM CAN EXT PRN (18:28)
--- NOTE | 2021-03-22 18:32 | Delivery Summary ---
Vaginal Delivery Summary Date of Service March 22, 2021 Vaginal Delivery Summary and 1st Degree LAC Patient is a 35-year-old 2 para 1-0-0-1 white female who presents at 38 weeks with ruptured membranes. Contractions started shortly after this. GBS status is positive. And she was adequately treated during labor. She received effective epidural analgesia and progressed to complete and +2 station. She pushed effectively over intact perineum for delivery of a viable male infant in the occiput posterior presentation. A loose nuchal cord was reduced after delivering the head the rest of the delivered easily and was placed on the mother's abdomen for further attention and stimulation. The infant was spontaneously crying and moving all 4 limbs. Placenta was expressed intact with a three-vessel cord. A first-degree vaginal and right labial laceration were repaired with 3-0 chromic in the usual fashion. bleeding was controlled with dilute Pitocin and fundal massage. Estimated blood loss was 300 cc. Mother and were doing well after delivery. [facility] Vaginal Delivery Charge Delivery Type Details: and 1st Degree LAC
--- NOTE | 2021-03-22 19:40 | Anesthesia Procedure Note ---
Date of Service March 22, 2021 Anesthesia Post Epidural Note Vital Signs Vital Signs: Temp Pulse Resp BP Pulse Ox 36.8 C 104 H 18 147/88 H 100 03/22/21 18:25 03/22/21 19:26 03/22/21 18:55 03/22/21 19:26 03/22/21 18:25 Pain Intensity Right Lower Abdomen: Pain Intensity: 0 Notes Mental Status: alert / awake / arousable Nausea / Vomiting: adequately controlled Pain: adequately controlled Airway Patency, RR, SpO2: stable & adequate BP & HR: stable & adequate Hydration State: stable & adequate Neuraxial Anesthesia: was administered and sensory block is resolving Anesthetic Complications: no major complications apparent Epidural: Removed without complications and With tip intact
[2021-03-22] MEDS: DOCUSATE SODIUM 100 MG CAP PO SCH (21:15)
[2021-03-23] MEDS: CALCIUM CARBONATE 500 MG CHEWABLE TAB PO PRN (02:11)
[2021-03-23] MEDS: IBUPROFEN 600 MG TAB PO PRN ×3 (02:56→20:13)
[2021-03-23 06:26] LABS: Hematocrit (blood only) 29.5 % (37-47); Hemoglobin 9.3 g/dL (12.0-16.0); Mean Corpuscular Hemoglobin 26.1 pg (25-34); Mean Corpuscular Hgb Conc 31.5 g/dL (32-36); Mean Corpuscular Volume 82.9 fL (80-100); Mean Platelet Volume 12.7 fL (7.4-10.4); Nucleated RBC % (auto) 0.6 %; Platelet Count 166 K/uL (130-400); RDW Coefficient of Variation 14.6 % (11.5-14.5); RDW Standard Deviation 44.5 fL (36.4-46.3); Red Blood Count 3.56 M/uL (4.2-5.4); White Blood Count 16.06 K/uL (4.8-10.8)
[2021-03-23] MEDS: PRENATAL VITAMIN 1 TAB PO SCH (08:40)
[2021-03-23] MEDS: DOCUSATE SODIUM 100 MG CAP PO SCH ×2 (08:40→20:13)
[2021-03-23] MEDS: ARIPiprazole 10 MG TAB PO SCH (08:40)
[2021-03-23] MEDS: buPROPion SR 150 MG TABCR PO SCH (08:41)
[2021-03-23] MEDS: DULoxetine HCL 60 MG CAP PO SCH (08:41)
[2021-03-23 12:14] LABS: Albumin Level 1.8 gm/dl (3.4-5.0); BUN Creatinine Ratio 11.9 (10-20); Calcium 8.5 mg/dl (8.5-10.1); Creatinine Clr Calc Pharmacy 57.9 ml/min; Est GFR (African American) 54.3 ml/min; Est GFR (Non-African American) 46.9 ml/min; Potassium 3.9 mmol/L (3.5-5.1)
[2021-03-23 12:17] LABS: Albumin Globulin Ratio 0.4 (0.9-2); Bilirubin,Total 0.2 mg/dl (0.2-1); Total Protein 5.8 gm/dl (6.4-8.2)
[2021-03-23 19:53] LABS: Basophils # (auto) 0.01 K/uL (0-0.2); Basophils % (auto) 0.1 %; Eosinophils # (auto) 0.11 K/uL (0-0.5); Eosinophils % (auto) 0.8 %; Hematocrit (blood only) 33.3 % (37-47); Hemoglobin 10.5 g/dL (12.0-16.0); Immature Granulocytes # (auto) 0.06 K/uL (0.00-0.02); Immature Granulocytes % (auto) 0.4 %; Lymphocytes # (auto) 2.78 K/uL (1.2-3.4); Mean Corpuscular Hemoglobin 26.6 pg (25-34); Mean Corpuscular Volume 84.5 fL (80-100); Mean Platelet Volume 13.3 fL (7.4-10.4); Monocytes # (auto) 1.13 K/uL (0.11-0.59); Monocytes % (auto) 7.7 %; Neutrophils # (auto) 10.55 K/uL (1.4-6.5); Nucleated RBC # (auto) 0.08 K/uL (0-0); Nucleated RBC % (auto) 0.5 %; Platelet Count 228 K/uL (130-400); RDW Coefficient of Variation 14.6 % (11.5-14.5); RDW Standard Deviation 45.5 fL (36.4-46.3); Red Blood Count 3.94 M/uL (4.2-5.4); White Blood Count 14.64 K/uL (4.8-10.8)
[2021-03-23 19:58] LABS: Mean Corpuscular Hgb Conc 31.5 g/dL (32-36)
[2021-03-23] MEDS ORDERED: bisacodyL 5 MG TABEC PO SCH (20:00)
[2021-03-23 20:11] LABS: Albumin Level 1.9 gm/dl (3.4-5.0); BUN Creatinine Ratio 13.7 (10-20); Calcium 8.4 mg/dl (8.5-10.1); Creatinine Clr Calc Pharmacy 54.5 ml/min; Est GFR (African American) 50.5 ml/min; Est GFR (Non-African American) 43.6 ml/min; Potassium 3.6 mmol/L (3.5-5.1)
[2021-03-23 20:14] LABS: Albumin Globulin Ratio 0.4 (0.9-2); Bilirubin,Total 0.2 mg/dl (0.2-1); Globulin 4.3 gm/dl (2.5-4.0); Total Protein 6.2 gm/dl (6.4-8.2)
--- NOTE | 2021-03-23 21:10 | Communication Note ---
Date of Service: March 23, 2021 Patient's BP's have been labile since delivery. When BP was 150/110 this morning, she complained of a headache not relieved with tylenol & motrin but resolved with one percocet. No visual changes were noted. BP returned to normal range with out meds. She also had some acid reflux at that time as well, but this had also occured while . PIH labs were done at noon today and liver enzymes are top normal; platelets are normal at 166k but creatinine was 1.45. prior documented creatinine was 0.7 last year. repeat labs 6 hours later at 1800 showed platelets had increased, liver enzymes were stable and creatinine increased to 1.54. Hgb also went from 9.3 to 10.5 with a drop in sodium from 137 to 134. she is on 3 psyche meds for bipolar disorder & anxiety/depression. BP's have been normal range since 1900. I am not sure this is PIH because BP's don't stay in range requiring treatment otherwise I would start labetalol 200mg bid. I will consult hospitalist service for their evaluation and recommendations. In the meantime I will recheck PIH labs 0600 in the am.
--- NOTE | 2021-03-23 21:37 | Hospitalist Consultation ---
Date of Consultation March 23, 2021 Assessment & Plan (1) JAZLYN (acute kidney injury): (2) Nausea, vomiting and diarrhea: 35-year-old female , day #1 from [facility] with past medical history significant for gestational diabetes, former history of heroin and alcohol use, PTSD, bipolar disorder, asthma with new onset acute kidney injury, elevated alk phos, and GI symptoms. JAZLYN: JAZLYN on lab work with a creatinine 1.54, baseline of 0.7. Patient had minimal blood loss during delivery, and for several days prior had diarrhea and poor p.o. intake since admission in the setting of nausea. Do not feel that patient's medications for bipolar disorder are the cause of her JAZLYN given she has been on these medications for several years and they have rare incidence of renal effect. Recommend NSS at a rate of 125 cc/hr both for suspected element of dehydration and mild hyponatremia. Evaluation of GI symptoms described below. Repeat renal function with morning labs. Nausea, vomiting, diarrhea: 5 days of diarrhea prior to admission, with nausea and vomiting today after a meal of meat and potatoes. Given mildly elevated WBC count, elevated alk phos, and above symptoms after eating, not impossible that she could have gallbladder pathology causing her symptoms. Will evaluate with gallbladder ultrasound, and repeat CMP in the morning. Would start patient on antibiotics such as Zosyn if cholecystitis is noted. Zofran as needed for nausea. CODE STATUS: Full code FEN: Diet at discretion of labor and delivery, NSS at 125 cc/hr x 2 bags DVT prophylaxis: Ambulate on demand Dispo: Labor and delivery, repeat evaluation tomorrow by hospitalist team to further evaluate the above Supervising Physician Co-Signing Physician Notes Attending addendum: I have physically seen this patient, have supervised the medical residents activities, and agree with the H&P unless as otherwise noted. Assessment and Plan: Acute kidney injury- Likely secondary to prerenal state caused by nausea, vomiting and diarrhea NSS at 125 mL's per hour Follow-up BMP and magnesium levels in a.m. Nausea, vomiting and diarrhea- Gallbladder ultrasound as noted to assess for possible cholecystitis or cholestasis of - Famotidine 20 mg IV every 12 hours Zofran 4 mg IV every 6 hours as needed Remaining orders and notations as noted History of Present Illness Reason for Consultation: JAZLYN in patient, Hx bipolar disorder Requesting Physician: Dr. Martini Attending Physician: Darcie Martini MD, FACOG History of Present Illness 35-year-old female , day #1 from [facility] with past medical history significant for gestational diabetes, former history of heroin and alcohol use, PTSD, bipolar disorder, asthma, GBS positive; consulted by Dr. Fagan for JAZLYN in patient with Hx bipolar disorder. Was treated adequately x2 for GBS with penicillin IV prior to delivery. Noted this morning to have a creatinine of 1.45 with a repeat later this afternoon of 1.54 (baseline of 0.6 in 08/2020). Also noted to have a mildly elevated WBC count that is downtrending from 15.29 on admission to 14.64 today. Hemoglobin today of 10.5 from a baseline of 12-13. Elevated alk phos to 213 with no baseline to compare. COVID-19 negative. On my interview, patient reports that she was having some intermittent diarrhea for about 5 days prior to admission, which she attributed to . She at present does not endorse any abdominal pain or active nausea, but was nauseated with vomiting today after dinner of meat and potatoes. She tolerated breakfast of toast and eggs well. She has been able to tolerate fluid intake without symptoms. She denies fevers or chills, chest pain, shortness of breath. She denies dysuria, hematuria, flank pain. No known sick contacts. She does endorse some headache/ neck ache that started after vomiting, which has been alleviated with Percocet and a heating pad. She received a total of 1800mg ibuprofen today for headache, and none yesterday. She has been noted on vitals to have some episodes of elevated BP 140-150/90-100, however not consistent and generally in normotensive range. With regard to her medications, she has been on the Abilify, buproprion, and duloxetine for at least 2 years. She denies any alcohol or drug use over the last several years, which is supported by PCP documentation. Allergies Allergy/AdvReac Type Severity Reaction Status Date / Time bee venom protein (honey bee) Allergy Severe swelling,SO Verified 03/18/21 11:01 B latex Allergy Mild RASH Verified 03/18/21 11:01 Home Medications Medication Instructions Recorded Confirmed Type aripiprazole 10 mg tablet (Abilify) 10 mg PO QAM 07/31/19 03/22/21 History duloxetine 60 mg capsule,delayed 120 mg PO DAILY #14 cap 04/08/20 03/22/21 Rx release acetone (urine) test (Ketone Urine #50 ea 01/31/21 03/18/21 Rx Test) blood sugar diagnostic (OneTouch #150 ea 01/31/21 03/18/21 Rx Verio test strips) blood-glucose meter (OneTouch #1 ea 01/31/21 03/18/21 Rx Verio Flex meter) lancets 33 gauge (OneTouch Delica #150 ea 01/31/21 03/18/21 Rx Plus Lancet) bupropion HCl 150 mg tablet,12 hr 300 mg PO DAILY ea 02/05/21 03/22/21 History sustained-release (Wellbutrin SR) vits no.124-ferrous fum 1 tab PO DAILY 03/22/21 03/22/21 History 27 mg iron-folic acid 800 mcg tablet ( Vitamin) breast pump #1 ea 03/25/21 Rx labetalol 100 mg tablet 100 mg PO BID #60 tab 03/25/21 Rx Patient History Medical History Anxiety On meds Bipolar disorder Blood in stool Depression On meds Erythema migrans (Lyme disease) History of anesthesia reaction difficulty waking after birthmark removal sx History of heroin use History of substance abuse Heroin; clean for 2+ years; no current medication History of tobacco use PTSD (post-traumatic stress disorder) Ruptured ovarian cyst Surgical History H/O colposcopy with cervical biopsy 12/30/17: HGSIL (moderate - severe dysplasia, JOSE RAFAEL 2-JOSE RAFAEL 3) H/O LEEP 05/04/18: LGSIL (JOSE RAFAEL 1) History of surgery birthmark removed off head S/P wisdom tooth extraction Family History Mother Anxiety and depression Hypertension Sister Anxiety and depression History of ovarian cyst Ovarian cyst Grandfather (Maternal) Diabetes Brother Multiple gestation Family/Other Multiple gestation cousin Grandmother (Maternal) Myocardial infarction Other Coronary heart disease No family history of adverse response to anesthesia Sudden Denies family history of Ovarian cancer Prostate cancer Breast cancer Colorectal cancer Social History Smoking Status: Former smoker Age Quit Using Tobacco: 32; packs per day: 0.5; Years Smoked: 17; Second Hand Exposure: No; Hx Alcohol Use: No Hx Substance Use: Yes Last Used Substance: Days (ago) Last Used Substance Other:: 5 years ago Substance Use Type Other:: herion Preferred Language: Upper Sorbian Communication Ability: Effective Wellness Coach Required: No Beliefs That Will Affect Care: None marital status: Single marital status details: FOB: Edi([birth year]) [phone] Current Living Situation: Spouse and Family Current Living Situation Comment: Lives at [facility] with boyfriend and daughter. current occupational status: employed current occupation: [employer] Feels Safe at Home: Yes Childhood Exposure to Second-Hand Smoke: No Dental Care, Regularly: Yes Physical Activity Frequency: 3-4 Times per Week Assistive Devices: None Review of Systems Review of Systems: All systems reviewed & are unremarkable except as noted in HPI & below Constitutional: no fever, no chills and no malaise Respiratory: no cough and no dyspnea Cardiovascular: no chest pain, no palpitations and no edema Gastrointestinal: + nausea, + vomiting and + diarrhea/loose stools; no abdominal pain and no constipation Genitourinary: no dysuria and no hematuria Physical Exam Constitutional: WD/WN, vitals as above Eyes: PERRL, conjunctivae normal, anicteric sclerae ENMT: external ear and nose normal, oropharynx normal Neck: normal visual inspection Respiratory: normal respiratory effort, lungs clear to auscultation Cardiovascular: Rate/Rhythm: regular rate and regular rhythm Heart Sounds: + murmur (2/6 systolic murmur over left mid-sternal border) Vessels: no JVD Extremities: no edema Gastrointestinal (Abdomen): normal bowel sounds, soft, nontender, no hepatospl enomegaly Musculoskeletal: no cyanosis or clubbing, extremities motor strength 5/5 Skin: no rashes, warm and dry Neurologic: AAOx3, normal speech. Bilateral UE, LE, and face without sensory or motor deficits. No tremor Psychiatric: A+Ox3, euthymic affect Results & Data Results & Data ([facility]) Vital Signs (Past 12 Hours) Vital Signs Temp Pulse Resp BP Pulse Ox 03/23/21 16:00 36.6 C 89 18 137/87 03/23/21 13:40 81 18 134/92 03/23/21 11:30 36.7 C 81 18 156/94 H 98 Resident Activity Tracking Resident Involvement: Resident Care Provided Care Provided: Adult Hospital Medicine
[2021-03-23] MEDS: SODIUM CHLORIDE 0.9% 1000ML 1,000 ML IV SCH (22:20)
[2021-03-23 22:45] LABS: Appearance Urine Clear (Clear); Bacteria Urine Automated Negative (Negative); Bilirubin Urine Negative (Negative); Blood Urine 3+ (Negative); Cast Urine Automated 0 /lpf (0-5); Color Urine Yellow; Glucose Urine UA Negative (Negative); Ketones Urine Negative (Negative); Leukocyte Esterase Urine Trace (Negative); Nitrite Urine Negative (Negative); Protein Urine Negative (Negative); Specific Gravity Urine 1.006 (1.000-1.030); Urobilinogen Urine Negative (Negative)
[2021-03-24] MEDS: SODIUM CHLORIDE 0.9% 1000ML 1,000 ML IV SCH (05:26)
--- NOTE | 2021-03-24 06:28 | Obstetrical Progress Note ---
Date of Service <Ryley Brownlee DO - Last Filed: 03/24/21 06:42> March 24, 2021 Assessment & Plan <Ryley Brownlee DO - Last Filed: 03/24/21 06:42> (1) Encounter for care and examination after delivery: 35yo PPD 2 s/p at 38 weeks -Continue routine care; RUQ US today, withholding morning meal. -Vitals reviewed- HDS, afebrile -A+, GBS+ treated with penicillin during labor, Rubella immune -Encourage ambulation, regular diet after US -Pain control with ibuprofen, acetaminophen PRN; did require Percocet for headache yesterday. -Encouraged (2) JAZLYN (acute kidney injury): -Internal medicine has been consulted for JAZLYN as well as n/v after eating -Due to elevated alk phosphatase, creat, and WBC, IM recommended RUQ US and repeat am CMP after 2 liters of NS. Breakfast withheld this morning. -Unlikely to be 2/2 home medications as she has been on them for years. -If cholecystitis present, consider using Zosyn for treatment. <Darcie Martini MD, FACOG - Last Filed: 03/24/21 07:53> (1) Encounter for care and examination after delivery: (2) JAZLYN (acute kidney injury): Subjective <Ryley Brownlee DO - Last Filed: 03/24/21 06:42> Ambulation: ambulating normally Voiding: no voiding problems Passing Gas:: Yes Diet Tolerance:: nausea/vomiting Lochia:: Small Feeding Type:: breast feeding (Baby is having some difficulty latching.) Current Pain Level(1-10): 1 PPD 2 s/p . Patient seen and examined at bedside. Reports no acute overnight events. Pt is currently being treated for JAZLYN likely due to prerenal etiology. Internal medicine is consulted. She states that she has been vomiting after evening meals. Pt states she is having some reflux and is drinking milk for it. Otherwise, pt has no complaints. Review of Systems All systems reviewed & are unremarkable except as noted in HPI & below Physical Exam <Ryley Brownlee DO - Last Filed: 03/24/21 06:42> General: Alert, oriented, no acute distress Cardiac: Regular rate and rhythm, normal S1, S2. 2/6 holosystolic murmur best auscultated at the L upper sternal border. Respiratory: Clear to auscultation b/l with good air flow entry, symmetric chest rise and fall. No wheezes or crackles. No increased work of breathing or ac cessory muscle use Abdomen: Soft, nontender, nondistended. Fundus firm and palpable at 2 cm below umbilicus. No guarding or rebound. Skin: No rashes or lesions Extremities: Warm, dry, well-perfused with capillary refill <2s b/l. No lower extremity edema, erythema or swelling. Negative Zak's sign b/l. Results & Data ([facility]) <Ryley Brownlee DO - Last Filed: 03/24/21 06:42> Vital Signs (Past 12 Hours) Vital Signs Temp Pulse Resp BP 03/23/21 23:30 37.2 C 89 18 152/95 H <Darcie Martini MD, FACOG - Last Filed: 03/24/21 07:53> Co-Signing Physician Notes Resident Physician Supervision Note: I was present with Dr. Brownlee during the history and exam. I discussed the case with the resident and agree with the findings and plan as documented in the note. Any exceptions or clarifications are listed here: will begin labetalol 100mg bid now pending the creatinine this morning. Hospitalist's recs appreciated. Documented By: Darcie Martini MD, FACOG
[2021-03-24 07:15] LABS: Basophils # (auto) 0.02 K/uL (0-0.2); Basophils % (auto) 0.1 %; Eosinophils # (auto) 0.13 K/uL (0-0.5); Eosinophils % (auto) 0.9 %; Hemoglobin 10.6 g/dL (12.0-16.0); Immature Granulocytes # (auto) 0.07 K/uL (0.00-0.02); Immature Granulocytes % (auto) 0.5 %; Lymphocytes % (auto) 24.8 %; Mean Corpuscular Hemoglobin 26.2 pg (25-34); Mean Platelet Volume 11.9 fL (7.4-10.4); Monocytes # (auto) 1.14 K/uL (0.11-0.59); Monocytes % (auto) 7.9 %; Neutrophils # (auto) 9.53 K/uL (1.4-6.5); Neutrophils % (auto) 65.8 %; Nucleated RBC # (auto) 0.14 K/uL (0-0); Nucleated RBC % (auto) 0.9 %; Platelet Count 264 K/uL (130-400); RDW Coefficient of Variation 14.7 % (11.5-14.5); RDW Standard Deviation 45.4 fL (36.4-46.3); Red Blood Count 4.05 M/uL (4.2-5.4); White Blood Count 14.49 K/uL (4.8-10.8)
[2021-03-24 07:31] LABS: Mean Corpuscular Hgb Conc 31.2 g/dL (32-36)
[2021-03-24 07:34] LABS: Albumin Level 1.9 gm/dl (3.4-5.0); BUN Creatinine Ratio 14.5 (10-20); Calcium 8.7 mg/dl (8.5-10.1); Creatinine Clr Calc Pharmacy 76.3 ml/min; Est GFR (African American) 75.9 ml/min; Est GFR (Non-African American) 65.5 ml/min; Potassium 4.1 mmol/L (3.5-5.1)
[2021-03-24 07:37] LABS: Albumin Globulin Ratio 0.4 (0.9-2); Bilirubin,Total 0.2 mg/dl (0.2-1); Globulin 4.4 gm/dl (2.5-4.0); Total Protein 6.3 gm/dl (6.4-8.2)
--- NOTE | 2021-03-24 08:14 | Ultrasound Report ---
ABDOMINAL ULTRASOUND, RIGHT UPPER QUADRANT HISTORY: vomiting elevated alk phos. COMPARISON: Abdominal ultrasound 07/21/2016. FINDINGS: Pancreas: The pancreatic tail is obscured by overlying bowel gas. The remaining portions of the pancr eas are within normal limits. Liver: There are few scattered small hyperechoic lesions measuring up to 1.4 cm. These are similar to the prior study and likely represent hemangiomas. Gallbladder: No gallbladder wall thickening. No gallstones. CBD: 3 mm. Right kidney: No hydronephrosis. IMPRESSION: 1. Normal gallbladder. No gallstone. 2. No change in the small scattered hyperechoic lesions within the liver likely representing hemangio mas. ACT 112: Negative or not required by law. Electronically signed by: Alan Meneses M.D. 03/24/2021 8:13 AM
[2021-03-24] MEDS: DOCUSATE SODIUM 100 MG CAP PO SCH ×2 (09:01→21:23)
[2021-03-24] MEDS: PRENATAL VITAMIN 1 TAB PO SCH (09:02)
[2021-03-24] MEDS: DULoxetine HCL 60 MG CAP PO SCH (09:02)
[2021-03-24] MEDS: IBUPROFEN 600 MG TAB PO PRN (09:02)
[2021-03-24] MEDS: buPROPion SR 150 MG TABCR PO SCH (09:03)
[2021-03-24] MEDS: ARIPiprazole 10 MG TAB PO SCH (09:03)
[2021-03-24] MEDS: LABETALOL HCL 100 MG TAB PO SCH ×2 (09:06→21:20)
--- NOTE | 2021-03-24 13:30 | Hospitalist Progress Note ---
Date of Service March 24, 2021 Assessment & Plan (1) JAZLYN (acute kidney injury): Plan: 35-year-old female , day #1 from [facility] with past medical history significant for gestational diabetes, former history of heroin and alcohol use, PTSD, bipolar disorder, asthma with new onset acute kidney injury, elevated alk phos, and GI symptoms. 1. JAZLYN, RESOLVED -JAZLYN on lab work with a creatinine 1.54 (04/23) --> 1.11 today which is WNL -Patient had minimal blood loss during delivery, and for several days prior had diarrhea and poor p.o. intake since admission in the setting of nausea. -Do not feel that patient's medications for bipolar disorder were the cause of her JAZLYN given she has been on these medications for several years and they have rare incidence of renal effect. -Some concern for preeclampsia but this will be managed by primary medical team, protocols in place. 2. Nausea, vomiting, diarrhea: -5 days of diarrhea prior to admission, with nausea and vomiting today after a meal of meat and potatoes. -Given mildly elevated WBC count, elevated alk phos, and above symptoms after eating, not impossible that she could have gallbladder pathology causing her symptoms --> evaluated with gallbladder ultrasound --> negative -Zofran as needed for nausea. 3. HTN -given labetolol 100mg PO BID CODE STATUS: Full code FEN: Diet at discretion of labor and delivery DVT prophylaxis: Ambulate on demand Dispo: Labor and delivery. JAZLYN has resolved and patient doing well from perspective of hospital team via consult from OBGYN. We will be signing off this patient at this time. Please consult us for another other problems that may arise. Admission and Anticipated Discharge Date Admission Date: March 22, 2021 Supervising Physician Co-Signing Physician Notes Attending attestation Pt seen and examined in concert with Dr. Martinez. In agreement with the documented findings as noted in the resident documentation with any exceptions or additions as noted here. Resting comfortably in bed without complaint at present. On examination, S1/S2 nl RRR no MCG. CTAB. Abd NT/ND BS+ve JAZLYN - 1.54 to 1.1 - improvement with IVF, concern for preeclampsia as noted below Preeclampsia - primary team management - magnesium protocol pending, trending lab studies Else see resident documentation as noted. Subjective Patient doing well today, feels better than yesterday. No acute complaints. Would like to go home today if possible. Review of Systems Review of Systems: Review of Systems: All systems reviewed & are unremarkable except as noted in HPI & below Constitutional: no fever, no chills and no malaise Respiratory: no cough and no dyspnea Cardiovascular: no chest pain, no palpitations and no edema Gastrointestinal: no nausea, no vomiting and no diarrhea/loose stools; no abdominal pain and no constipation Genitourinary: no dysuria and no hematuria Physical Exam Physical Exam: Constitutional: WD/WN, vitals as above Eyes: PERRL, conjunctivae normal, anicteric sclerae ENMT: external ear and nose normal, oropharynx normal Neck: normal visual inspection Respiratory: normal respiratory effort, lungs clear to auscultation Cardiovascular: Rate/Rhythm: regular rate and regular rhythm Heart Sounds: + murmur (2/6 systolic murmur over left mid-sternal border) Vessels: no JVD Extremities: no edema Gastrointestinal (Abdomen): normal bowel sounds, soft, nontender, no hepatosplenomegaly Musculoskeletal: no cyanosis or clubbing, extremities motor strength 5/5 Skin: no rashes, warm and dry Neurologic: normal speech. Bilateral UE, LE, and face without sensory or motor deficits. No tremor. Psychiatric: A+Ox3, euthymic affect Results & Data Results & Data ([facility]) Vital Signs (Past 12 Hours) Vital Signs Temp Pulse Resp BP Pulse Ox 03/24/21 08:40 36.8 C 84 16 131/87 100 Resident Activity Tracking Resident Involvement: Resident Care Provided Care Provided: Adult Hospital Medicine
[2021-03-24 14:22] LABS: Basophils # (auto) 0.01 K/uL (0-0.2); Basophils % (auto) 0.1 %; Eosinophils # (auto) 0.07 K/uL (0-0.5); Eosinophils % (auto) 0.7 %; Hematocrit (blood only) 28.6 % (37-47); Hemoglobin 8.7 g/dL (12.0-16.0); Immature Granulocytes # (auto) 0.02 K/uL (0.00-0.02); Immature Granulocytes % (auto) 0.2 %; Lymphocytes # (auto) 1.66 K/uL (1.2-3.4); Lymphocytes % (auto) 15.8 %; Mean Corpuscular Volume 85.4 fL (80-100); Mean Platelet Volume 11.4 fL (7.4-10.4); Monocytes # (auto) 0.65 K/uL (0.11-0.59); Monocytes % (auto) 6.2 %; Neutrophils # (auto) 8.12 K/uL (1.4-6.5); Nucleated RBC # (auto) 0.07 K/uL (0-0); Nucleated RBC % (auto) 0.6 %; Platelet Count 216 K/uL (130-400); RDW Coefficient of Variation 14.8 % (11.5-14.5); RDW Standard Deviation 46.6 fL (36.4-46.3); Red Blood Count 3.35 M/uL (4.2-5.4); White Blood Count 10.53 K/uL (4.8-10.8)
[2021-03-24 14:27] LABS: Mean Corpuscular Hgb Conc 30.4 g/dL (32-36)
[2021-03-24 14:57] LABS: Albumin Level 1.6 gm/dl (3.4-5.0); BUN Creatinine Ratio 14.9 (10-20); Creatinine Clr Calc Pharmacy 75.7 ml/min; Est GFR (Non-African American) 64.7 ml/min; Potassium 4.1 mmol/L (3.5-5.1)
[2021-03-24 15:00] LABS: Albumin Globulin Ratio 0.4 (0.9-2); Bilirubin,Total 0.1 mg/dl (0.2-1); Globulin 3.7 gm/dl (2.5-4.0); Total Protein 5.3 gm/dl (6.4-8.2)
[2021-03-24] MEDS: CALCIUM CARBONATE 500 MG CHEWABLE TAB PO PRN (15:36)
[2021-03-24] MEDS ORDERED: MAGNESIUM SULFATE / WTR 40 GM/1,000 ML BAG IV SCH (16:15)
--- NOTE | 2021-03-24 16:19 | Obstetrical Progress Note ---
Date of Service March 24, 2021 Assessment & Plan Admission and Anticipated Discharge Date Admission Date: March 22, 2021 Subjective Review of patient's labs, BPs, and chart, including current lab results. Crea tinine still elevated, although it is improving. Patient reports that she did have headache, but this has improved at this point. Internal medicine has been consulted for patient's acute kidney injury. I discussed with patient that this JAZLYN seems to be improving, however given her status, elevated BP requiring labetalol 100mg PO, and elevated creatinine, would recommend that we treat this as preeclampsia. Would not want to miss this as a cause of her labs/BPs, and would recommend using magnesium to decrease risk of possible associated seizures. Patient is agreeable, will plan for magnesium. Will check Q6 labs. Questions answered. Results & Data ([facility]) Vital Signs (Past 12 Hours) Vital Signs Temp Pulse Resp BP Pulse Ox 03/24/21 15:48 36.5 C 87 20 104/67 03/24/21 08:40 36.8 C 84 16 131/87 100 03/24/21 07:45 36.8 C 83 20 122/87 PG Care Time/CCT Total # of Minutes Spent Total Time Spent with Patient: Total time spent is greater than 50% in coordination of care (as documented) at patient's floor/unit and/or counseling patient: Coding Level of Care Code None
[2021-03-24] MEDS ORDERED: SODIUM CHLORIDE 0.9% 500 ML IV SCH (16:45)
[2021-03-24 21:23] LABS: Hemoglobin 8.4 g/dL (12.0-16.0); Mean Corpuscular Hemoglobin 26.3 pg (25-34); Mean Corpuscular Hgb Conc 31.1 g/dL (32-36); Mean Corpuscular Volume 84.4 fL (80-100); Mean Platelet Volume 11.5 fL (7.4-10.4); Nucleated RBC # (auto) 0.08 K/uL (0-0); Nucleated RBC % (auto) 0.7 %; Platelet Count 253 K/uL (130-400); RDW Coefficient of Variation 15.1 % (11.5-14.5)
[2021-03-24 21:44] LABS: Albumin Level 1.6 gm/dl (3.4-5.0); BUN Creatinine Ratio 15.4 (10-20); Calcium 7.4 mg/dl (8.5-10.1); Est GFR (African American) 80.2 ml/min; Est GFR (Non-African American) 69.2 ml/min; Magnesium Therapeutic L&D Only 5.1 mg/dL (4.0-8.0); Potassium 3.9 mmol/L (3.5-5.1)
[2021-03-24 21:54] LABS: Albumin Globulin Ratio 0.4 (0.9-2); Bilirubin,Total 0.2 mg/dl (0.2-1); Globulin 3.9 gm/dl (2.5-4.0); Total Protein 5.5 gm/dl (6.4-8.2)
[2021-03-25] MEDS: CALCIUM CARBONATE 500 MG CHEWABLE TAB PO PRN (02:23)
[2021-03-25 03:48] LABS: Hematocrit (blood only) 28.5 % (37-47); Hemoglobin 8.8 g/dL (12.0-16.0); Mean Corpuscular Hemoglobin 26.3 pg (25-34); Mean Corpuscular Hgb Conc 30.9 g/dL (32-36); Mean Corpuscular Volume 85.1 fL (80-100); Mean Platelet Volume 10.9 fL (7.4-10.4); Nucleated RBC # (auto) 0.07 K/uL (0-0); Nucleated RBC % (auto) 0.6 %; Platelet Count 270 K/uL (130-400); RDW Coefficient of Variation 15.2 % (11.5-14.5); RDW Standard Deviation 47.1 fL (36.4-46.3); Red Blood Count 3.35 M/uL (4.2-5.4)
[2021-03-25 04:25] LABS: Albumin Globulin Ratio 0.4 (0.9-2); Albumin Level 1.7 gm/dl (3.4-5.0); BUN Creatinine Ratio 15.7 (10-20); Bilirubin,Total 0.2 mg/dl (0.2-1); Calcium 6.9 mg/dl (8.5-10.1); Creatinine Clr Calc Pharmacy 87.5 ml/min; Est GFR (African American) 89.4 ml/min; Est GFR (Non-African American) 77.2 ml/min; Globulin 3.9 gm/dl (2.5-4.0); Magnesium Therapeutic L&D Only 6.6 mg/dL (4.0-8.0); Potassium 3.7 mmol/L (3.5-5.1); Total Protein 5.6 gm/dl (6.4-8.2)
[2021-03-25] MEDS: IBUPROFEN 600 MG TAB PO PRN (06:02)
--- NOTE | 2021-03-25 06:22 | Obstetrical Progress Note ---
Date of Service March 25, 2021 Assessment & Plan (1) Preeclampsia in period: PPD#3 doing well. Started magnesium yesterday for preeclampsia (elevated BP + elevated creatinine), BP and creatinine have improved. Patient does note a headache this morning, feels like it has improved with some stretching, and thinks it is likely musculoskeletal. She just rec'd ibuprofen minutes before my exam - will watch to see how this goes, will notify us if it does not resolve. Will continue labetalol for now, if feeling well and BPs ok later today, will be ok for DC home with plans to follow up in office for BP check later this week. Subjective Ambulation: ambulating normally Voiding: no voiding problems Diet Tolerance:: regular diet Lochia:: Moderate Review of Systems All systems reviewed & are unremarkable except as noted in HPI & below Physical Exam Constitutional WD/WN, vitals as above no acute distress Respiratory normal respiratory effort Cardiovascular Rate/Rhythm: regular rate and regular rhythm Gastrointestinal (Abdomen) Inspection/Auscultation: abdomen normal to inspection; abdomen not distended Percussion/Palpation: abdomen soft Genitourinary OB Exam Abdomen: + fundal height Fundus: + firm; not tender Results & Data ([facility]) Vital Signs (Past 12 Hours) Vital Signs Temp Pulse Pulse Resp BP BP 03/25/21 06:15 85 140/80 03/25/21 05:15 81 81 18 120/65 120/65 03/25/21 04:15 36.4 C L 81 81 22 102/59 L 102/59 L 03/25/21 03:15 89 89 22 128/73 128/73 03/25/21 02:41 102 H 20 133/83 03/25/21 02:15 102 H 133/83 03/25/21 01:17 95 H 20 121/75 03/25/21 01:15 93 H 93 H 20 121/66 121/66 03/25/21 00:15 95 H 20 121/75 03/24/21 23:15 91 H 116/65 03/24/21 23:00 36.5 C 91 H 18 116/65 03/24/21 22:14 91 H 115/67 03/24/21 22:00 16 03/24/21 21:14 88 118/73 03/24/21 21:00 18 10/04/21 20:14 88 114/68 03/24/21 20:00 18 03/24/21 19:25 36.5 C 18 03/24/21 19:21 93 H 114/63
--- NOTE | 2021-03-25 08:17 | Obstetrical Progress Note ---
Date of Service March 25, 2021 Assessment & Plan Admission and Anticipated Discharge Date Admission Date: March 22, 2021 Subjective Patient with symptomatic improvement of headache. BPs have been wnl, did not receive last night's or this morning's labetalol. Will cancel PO labetalol. Magnesium infusion IV infiltrated this morning, given patient's symptomatic, lab, and BP improvements, ok to stop mag at this time. Office has already confirmed followup appointment later this week for BP check. Will not send home with labetalol Rx, as there is concern this could decrease BP further. I discussed with oncoming physician, will plan to monitor BPs today, with intention if good, DC this afternoon. Results & Data ([facility]) Vital Signs (Past 12 Hours) Vital Signs Temp Pulse Pulse Resp BP BP 03/25/21 07:50 74 119/78 03/25/21 06:15 85 85 22 140/80 140/80 03/25/21 05:15 81 81 18 120/65 120/65 03/25/21 04:15 36.4 C L 81 81 22 102/59 L 102/59 L 03/25/21 03:15 89 89 22 128/73 128/73 03/25/21 02:41 102 H 20 133/83 03/25/21 02:15 102 H 133/83 03/25/21 01:17 95 H 20 121/75 03/25/21 01:15 93 H 93 H 20 121/66 121/66 03/25/21 00:15 95 H 20 121/75 03/24/21 23:15 91 H 116/65 03/24/21 23:00 36.5 C 91 H 18 116/65 03/24/21 22:14 91 H 115/67 03/24/21 22:00 16 03/24/21 21:14 88 118/73 03/24/21 21:00 18 PG Care Time/CCT Total # of Minutes Spent Total Time Spent with Patient: Total time spent is greater than 50% in coordination of care (as documented) at patient's floor/unit and/or counseling patient: Coding Level of Care Code None
[2021-03-25] MEDS: buPROPion SR 150 MG TABCR PO SCH (09:27)
[2021-03-25] MEDS: DULoxetine HCL 60 MG CAP PO SCH (09:27)
[2021-03-25] MEDS: DOCUSATE SODIUM 100 MG CAP PO SCH (09:27)
[2021-03-25] MEDS: PRENATAL VITAMIN 1 TAB PO SCH (09:27)
[2021-03-25] MEDS: ARIPiprazole 10 MG TAB PO SCH (09:27)
--- NOTE | 2021-03-25 10:18 | Billing Data ---
Date of Service March 25, 2021 Coding Level of Care Code 94975 Inpt Consult Level 3
== END 2021-03-25 14:00 | disposition home or self-care (01) | DRG 806 ==
LOC: OPB 12:24 → 4S1 12:40 → 4S2 21:17 → 4S1 03-24 17:01